=== PATIENT | male | born 1945 | race Caucasian/White ===

== ENCOUNTER 2017-02-17 15:26 | Inpatient (IN) | payer MEDICARE ==
[~2017-02-17] VITALS: Ht 182.9 cm; Wt 103.5 kg
--- NOTE | 2017-02-17 15:58 | ED.ADGEN ---
Past Medical History Past Medical History: Asthma, Cancer, COPD, CVA, Diabetes-Type II, Hypertension , Other Additional Past Medical Histor: THYROID CA Past Surgical History: Other Additional Past Surgical Histo: THYROIDECTOMY,TUMOR REMOVED FROM BACK,SHOULDER Additional Information: 3 PPD Alcohol Use: None Drug Use: None Adult General Chief Complaint Chief Complaint: SHORTNESS OF BREATH HPI HPI Patient is a 71 year old man, history of type 2 diabetes mellitus, hypertension , COPD, CVA, thyroid carcinoma, kidney disease, on Aggrenox and aspirin, who follows at the [place], who presents to the emergency department with a complaint of shortness of breath worsening over the past several days. Cough productive of clear sputum, no fevers, no chills, did receive this laxation this year. Generalized weakness, no focal weakness, headaches, numbness or tingling. No chest pain. No back pain. No GI or complaints. No vision changes. No injuries. He states that treatments at home have not been effective. Patient noted to be hypoxic, oxygen saturation of 88% on room air upon arrival, heart rate of 103, sinus tachycardia the monitor. Denies any recent travel or surgery , any history of DVT or PE. Review of Systems Review of Systems Constitutional: Denies fever or chills. [] Eyes: Denies change in visual acuity. [] HENT: Denies nasal congestion or sore throat. [] Respiratory: Cough productive of clear sputum, shortness of breath. Cardiovascular: Denies chest pain or edema. [] GI: Denies abdominal pain, nausea, vomiting, bloody stools or diarrhea. [] : Denies dysuria. [] Musculoskeletal: Denies back pain or joint pain. [] Integument: Denies rash. [] Neurologic: Denies headache, focal weakness or sensory changes. [] Endocrine: Denies polyuria or polydipsia. [] Lymphatic: Denies swollen glands. [] Psychiatric: Denies depression or anxiety. [] Current Medications Current Medications Current Medications Medications (Trade) Dose Ordered Sig/Tejas Start Time Stop Time Status Last Admin Dose Admin Albuterol/ Ipratropium (Duoneb) 3 ml STK-MED ONCE 02/17/17 16:09 02/17/17 16:10 DC Allergies Allergies Allergies Coded Allergies Type Severity Reaction Last Updated Verified No Known Drug Allergies 02/17/17 No Physical Exam Physical Exam Constitutional: Well developed, well nourished, no acute distress, non-toxic appearance. [] HENT: Normocephalic, atraumatic, bilateral external ears normal, oropharynx moist, no oral exudates, nose normal. [] Eyes: PERRLA, EOMI, conjunctiva normal, no discharge. [] Neck: Normal range of motion, no tenderness, supple, no stridor. [] Cardiovascular:Heart rate mildly tachycardic, regular, no murmur , S1, S2, rubs or gallops. [] Lungs & Thorax: Patient with coarse breath sounds bilaterally, poor aeration, no wheezing, rales noted to the lung kerr. Abdomen: Bowel sounds normal, no rebound, rigidity, no guarding, soft, no tenderness, no masses, no pulsatile masses. [] Skin: Warm, dry, no erythema, no rash. [] Back: No tenderness, no CVA tenderness. [] Extremities: No tenderness, no cyanosis, no clubbing, ROM intact, no edema. Negative Homans sign. [] Neurologic: Alert and oriented X 3, normal motor function, normal sensory function, no focal deficits noted. [] Psychologic: Affect normal, judgement normal, mood normal. [] Current Patient Data Vital Signs Vital Signs Date Time Temp Pulse Resp B/P Pulse Ox O2 Delivery O2 Flow Rate FiO2 02/17/17 17:00 92 22 173/70 95 Nasal Cannula 2 02/17/17 15:31 98.3 98.3 Lab Values Laboratory Tests Test 02/17/17 15:50 02/17/17 16:10 White Blood Count 10.4x10^3/uL (4.0-11.0) Red Blood Count 3.54x10^6/uL (4.30-5.70) L Hemoglobin 10.5g/dL (13.0-17.5) L Hematocrit 30.7% (39.0-53.0) L Mean Corpuscular Volume 87fL (79-100) Mean Corpuscular Hemoglobin 30pg (25-35) Mean Corpuscular Hemoglobin Concent 34g/dL (31-37) Red Cell Distribution Width 14.3% (11.5-14.5) Platelet Count 255x10^3/uL (140-400) Neutrophils (%) (Auto) 76% (31-73) H Lymphocytes (%) (Auto) 14% (24-48) L Monocytes (%) (Auto) 7% (0-9) Eosinophils (%) (Auto) 2% (0-3) Basophils (%) (Auto) 1% (0-3) Neutrophils # (Auto) 7.9x10^3uL (1.8-7.7) H Lymphocytes # (Auto) 1.5x10^3/uL (1.0-4.8) Monocytes # (Auto) 0.7x10^3/uL (0.0-1.1) Eosinophils # (Auto) 0.2x10^3/uL (0.0-0.7) Basophils # (Auto) 0.1x10^3/uL (0.0-0.2) Prothrombin Time 14.1SEC (11.7-14.0) H Prothrombin Time INR 1.2 (0.8-1.1) H Sodium Level 144mmol/L (136-145) Potassium Level 3.8mmol/L (3.5-5.1) Chloride Level 106mmol/L (98-107) Carbon Dioxide Level 24mmol/L (21-32) Anion Gap 14 (6-14) Blood Urea Nitrogen 45mg/dL (8-26) H Creatinine 4.1mg/dL (0.7-1.3) H Estimated GFR (Cockcroft-Gault) 14.5 BUN/Creatinine Ratio 11 (6-20) Glucose Level 155mg/dL (70-99) H Calcium Level 8.8mg/dL (8.5-10.1) Total Bilirubin 0.2mg/dL (0.2-1.0) Aspartate Amino Transferase (AST) 10U/L (15-37) L Alanine Aminotransferase (ALT) 17U/L (16-63) Alkaline Phosphatase 84U/L (46-116) Troponin I Quantitative < 0.017ng/mL (0.000-0.055) ET-Awd-F-Type Natriuretic Peptide 875pg/mL (0-124) H Total Protein 7.1g/dL (6.4-8.2) Albumin 3.3g/dL (3.4-5.0) L Albumin/Globulin Ratio 0.9 (1.0-1.7) L Influenza Type A Antigen Negative (NEGATIVE) Influenza Type B Antigen Negative (NEGATIVE) Laboratory Tests 02/17/17 15:50 Laboratory Tests 02/17/17 15:50 EKG EKG EC: Sinus rhythm, heart rate 90 bpm, upright axis, QTC of 467, OR of 160 , QRS of 106, no ST elevations or depressions, contour normality is noted in the anterior septal leads, abnormal ECG, does not meet STEMI criteria. As interpreted by me. Radiology/Procedures Radiology/Procedures [][facility] [address] [place] [address] IMAGING REPORT Signed PATIENT: FARHAN SAM ACCOUNT: [id number] : 1945 LOCATION: ER AGE: 71 SEX: M EXAM STATUS: REG ER ORD. PHYSICIAN: HIGINIO ROWLAND DO REASON: Renal failure PROCEDURE: RENAL COMPLETE BILATERAL PROCEDURE Renal ultrasound. HISTORY Renal failure. Uncontrolled hypertension. TECHNIQUE Renal ultrasound was performed. COMPARISON None. FINDINGS Right kidney measures at least 7.0 centimeters in length and the left 10.9 centimeters. Cortical echogenicity is increased bilaterally. There is no hydronephrosis or renal mass. Bladder is distended to a volume of 491 cubic centimeters. IMPRESSION Increased renal cortical echogenicity can be a finding of medical renal disease. Electronically signed by: Vinh Gleason MD (Feb 17, 2017 18:06:28) DICTATED and SIGNED BY: VINH GLEASON MD DATE: 02/17/171805 CC: HIGINIO ROWLAND DO; NON,STAFF ~ Impressions: [facility] [address] [place] [address] IMAGING REPORT Signed PATIENT: FARHAN SAM ACCOUNT: [id number] : 1945 LOCATION: ER AGE: 71 SEX: M EXAM STATUS: PRE ER ORD. PHYSICIAN: HIGINIO ROWLAND DO REASON: SOA/Hypoxia PROCEDURE: PORTABLE CHEST 1V Portable chest, 02/17/2017: History: Shortness of breath, hypoxia No previous studies are available at this time for comparison purposes. The heart is within normal limits in size. The pulmonary vascularity is at the upper limits of normal. The depth of inspiration is suboptimal with streaky atelectasis in both lung bases. A component pneumonia cannot be excluded. There is blunting of the left lateral costophrenic angle compatible with a small amount of pleural fluid. IMPRESSION: 1. Borderline vascular congestion. 2. Mild bibasilar atelectasis. 3. Small left pleural effusion DICTATED and SIGNED BY: MAURICIO GONZALEZ MD DATE: 02/17/17 7087 CC: HIGINIO ROWLAND DO ~ Course & Med Decision Making Course & Med Decision Making Pertinent Labs and Imaging studies reviewed. (See chart for details) Patient with hypoxia, examination concerning for pulmonary edema, confirmed on chest x-rays reveals evidence of pulmonary edema and a small left-sided pleural effusion. Patient's history, examination, and laboratory studies support fluid, no evidence of infection. Patient with a creatinine of 4.1, blood urea nitrogen of 45. He states that he does have a history of kidney disease, although he cannot provide additional information. No ECG or lateral abnormalities. I did discuss findings as above with Dr. Romo of nephrology, at this point the patient is stable on several liters nasal cannula oxygen, blood pressures are 150s over 70s, heart rate is in the 80s. He requests the patient be initiated on Lasix, and a Laird catheter placed for monitoring and ruling out obstruction , an ultrasound of the kidneys be obtained. [facility]. I discussed this with patient, who is in agreement with plan for admission, although he initially was hesitant, patient's is currently on hospice his knees upset about being admitted to the hospital although he understands at this point he is not safe for discharge home. He did decline a Laird catheter placement. Patient was voiding in the ED without issue , denied any issues with passing urine. Specimen was sent. Findings as above were discussed with Dr. Vazquez internal medicine, patient accepted to her service as a full admission to the medical telemetry floor with consultation and evaluation as stated. Bridge orders entered per discussion. Dragon Disclaimer Dragon Disclaimer This electronic medical record was generated, in whole or in part, using a voice recognition dictation system. Departure Impression: Primary Impression: Pulmonary edema Additional Impressions: Renal failure Hypoxia Disposition: 09 ADMITTED INPATIENT Admitting Physician: Tiffani Vazquez Condition: IMPROVED Problem Qualifiers HIGINIO ROWLAND DO Feb 17, 2017 15:58
[2017-02-17 16:03] LABS: BASO # 0.1 x10^3/uL (0.0-0.2); BASO % 1 % (0-3); EOS % 2 % (0-3); HEMATOCRIT 30.7 % (39.0-53.0); HEMOGLOBIN 10.5 g/dL (13.0-17.5); LYMPH # 1.5 x10^3/uL (1.0-4.8); LYMPH % 14 % (24-48); MEAN CORPUSCULAR HEMOGLOBIN 30 pg (25-35); MEAN CORPUSCULAR HGB CONC 34 g/dL (31-37); MEAN CORPUSCULAR VOLUME 87 fL (79-100); MONO % 7 % (0-9); NEUT % 76 % (31-73); PLATELET COUNT 255 x10^3/uL (140-400); RED BLOOD COUNT 3.54 x10^6/uL (4.30-5.70); RED CELL DISTRIBUTION WIDTH 14.3 % (11.5-14.5); WHITE BLOOD COUNT 10.4 x10^3/uL (4.0-11.0)
[2017-02-17] MEDS ORDERED: IPRATRPIUM/ALBUTEROL 0.5/2.5MG 3 ML NEBU. ONE (16:09)
--- NOTE | 2017-02-17 16:16 | RAD ---
Portable chest, 02/17/2017: History: Shortness of breath, hypoxia No previous studies are available at this time for comparison purposes. The heart is within normal limits in size. The pulmonary vascularity is at the upper limits of normal. The depth of inspiration is suboptimal with streaky atelectasis in both lung bases. A component pneumonia cannot be excluded. There is blunting of the left lateral costophrenic angle compatible with a small amount of pleural fluid. IMPRESSION: 1. Borderline vascular congestion. 2. Mild bibasilar atelectasis. 3. Small left pleural effusion
[2017-02-17 16:17] LABS: CALCIUM 8.8 mg/dL (8.5-10.1); CREATININE 4.1 mg/dL (0.7-1.3); GFR 14.5; POTASSIUM 3.8 mmol/L (3.5-5.1)
[2017-02-17 16:22] LABS: ALBUMIN 3.3 g/dL (3.4-5.0); ALBUMIN/GLOBULIN RATIO 0.9 (1.0-1.7); TOTAL BILIRUBIN 0.2 mg/dL (0.2-1.0); TOTAL PROTEIN 7.1 g/dL (6.4-8.2)
[2017-02-17 16:38] LABS: OBC FLU VALID
[2017-02-17] MEDS ORDERED: FUROSEMIDE 40 MG/4 ML VIAL IVP ONE (17:30)
--- NOTE | 2017-02-17 18:08 | RAD ---
PROCEDURE Renal ultrasound. HISTORY Renal failure. Uncontrolled hypertension. TECHNIQUE Renal ultrasound was performed. COMPARISON None. FINDINGS Right kidney measures at least 7.0 centimeters in length and the left 10.9 centimeters. Cortical echogenicity is increased bilaterally. There is no hydronephrosis or renal mass. Bladder is distended to a volume of 491 cubic centimeters. IMPRESSION Increased renal cortical echogenicity can be a finding of medical renal disease. Electronically signed by: Vinh Gleason MD (Feb 17, 2017 18:06:28)
[2017-02-17] MEDS ORDERED: PROCHLORPERAZINE 10 MG/2 ML VIAL. IV PRN (19:00)
[2017-02-17] MEDS ORDERED: CALCIUM CARBONATE 500 MG TAB.CHEW PO PRN (19:00)
[2017-02-17] MEDS ORDERED: MAG HYDROX/ALUMINUM HYD/SIMETH 30 ML ORAL.SUSP PO PRN (19:00)
[2017-02-17] MEDS ORDERED: MORPHINE SULFATE 2 MG/ML DISP.SYRIN. IV PRN (19:00)
[2017-02-17] MEDS ORDERED: ONDANSETRON PF 4 MG/2 ML VIAL. IV PRN (19:00)
[2017-02-17] MEDS ORDERED: LACTULOSE 20 GM/30 ML SOLUTION. PO PRN (19:00)
[2017-02-17] MEDS ORDERED: OXYCODONE IR 5 MG TABLET. PO PRN (19:00)
[2017-02-17] MEDS ORDERED: ACETAMINOPHEN 325 MG TABLET. PO PRN (19:00)
[2017-02-17] MEDS ORDERED: DEXTROSE 50% 25 GM / 50ML DISP.SYRIN. IV PRN ×2 (19:00→19:15)
[2017-02-17] MEDS ORDERED: BISACODYL 10 MG SUPP.RECT. PR PRN (19:00)
[2017-02-17] MEDS ORDERED: MAGNESIUM HYDROXIDE 2,400 MG/30 ML ORAL.SUSP. PO PRN (19:00)
[2017-02-17] MEDS ORDERED: PROCHLORPERAZINE 25 MG SUPP.RECT. PR PRN (19:00)
--- NOTE | 2017-02-17 19:04 | PDOC1 ---
History and Physical Date of Admission Date of Admission DATE: 02/17/17 TIME: 18:55 Identification/Chief Complaint Chief Complaint soa Source Source: Caregiver, Chart review, Patient History of Present Illness History of Present Illness 71 y.o male, not the best historian, decide to come to er bec of worsening SOA, no leg edema. Was told at one point might need HD,. Denies CP, abd pain, n/emesis or any other sxs is at hospice, pt initially wanted to leave, BUt hypoxic at ER 88% at its best, BNP elevated, CXR shows congestion, Got lasix at ER, UO good, Advised flannery by renal and renal US Crea 4.9, unknown baseline,. Claims he still makes good urine PAst medical: HTN, COPD, DM, CKD Past Surgical History Past Surgical History: Other (unknown - pt limited todya (pre occupied with on hpsice?)) Family History Family History: Family History Unknown Social History Smoke: No ALCOHOL: none Drugs: None Current Problem List Problem List Problems Medical Problems: (1) CKD (chronic kidney disease) Status: Acute (2) Hypoxia Status: Acute (3) Pulmonary edema Status: Acute (4) Renal failure Status: Acute Problems: Current Medications Current Medications Current Medications Albuterol/ Ipratropium (Duoneb) 3 ml STK-MED ONCE .ROUTE ; Start 02/17/17 at 16: 09; Stop 02/17/17 at 16:10; Status DC Furosemide (Lasix) 80 mg 1X ONCE IVP Last administered on 02/17/17t 17:51; Start 02/17/17 at 17:30; Stop 02/17/17 at 17:31; Status DC Allergies Allergies: Coded Allergies: No Known Drug Allergies (Unverified , 02/17/17) ROS General: YES: Malaise Eyes: No Blurry vision, No Decreased vision, No Double vision, No Dry eyes, No Excessive tearing, No Eye Pain, No Itchy Eyes, No Loss of vision, No Other, No Photophobia, No Scotomata, No Uses contacts, No Uses glasses HEENT: No: Epistaxis, Heacaches, Hearing change, Nasal congestion, Nasal discharge, Oral lesions, Other, Sinus pain, Sneezing, Snoring, Sore Throat, Tinnitus, Vertigo, Visual Changes, Vocal changes ALLERGY AND IMMUNOLOGY: No: Hives, Insect Bite Sensitivity, Itchy/Watery Eyes, Nasal Congestion, Other, Post Nasal Drip, Seasonal Allergies ENDOCRINE: No: Breast Changes, Galactorrhea, Hair Pattern Changes, Hot Flashes , Malaise/lethargy, Mood Swings, Other, Palpitations, Polydipsia/polyuria, Skin Changes, Temperature Intolerance, Unexpected Weight Changes Breast: No New/Changing Breast Lumps, No Nipple changes, No Nipple discharge, No Other Respiratory: YES: Shortness of breath, No: Cough, Hemoptysis, Orthopnea, Other, Pleuritic Pain, SOB with excertion, Sputum Changes, Stridor, Tachypnea, Wheezing Cardiovascular: No Chest Pain, No Edema, No Lt Headedness, No Orthopnea, No Other, No Palpitations, No Paroxysmal Noc. Dyspnea Genitourinary: No , No , No , No , No , No , No , No Discharge, No Dysuria, No Flank Pain, No Frequency, No Hematuria, No Incontinence, No Other, No Pain, No Retention, No Urgency Musculoskeletal: No Gait Disturbance, No Joint Pain, No Joint Stiffness, No Joint Swelling, No Muscle Pain, No Muscular Weakness, No Other, No Pain In:, No Swelling In: Neurological: No Behavorial Changes, No Bowel/Bladder ControlChng, No Confusion , No Dizziness, No Gait Disturbance, No Headaches, No Impaired Coord/balance, No Memory Loss, No Numbness/Tingling, No Other, No Seizures, No Speech Problems , No Tremors, No Visual Changes, No Weakness Skin: No Acne, No Dry Skin, No Eczema, No Hair Changes, No Lumps, No Mole Changes, No Mottling, No Nail Changes, No Other, No Pruritus, No Rash, No Skin Lesion Changes Physical Exam General: Alert, Oriented X3, Cooperative, No acute distress HEENT: Atraumatic, PERRLA Lungs: Normal air movement, Other (crackles, no wheezing) Heart: S1S2, RRR Cardiovascular: S1, S2 Breasts: Normal, Rt breast nml w/o mass, Lt breast nml w/o mass, Nipples normal Male Genitals Exam: normal genitalia, normal prostate Rectal Exam: not examined, mass PELVIC: Nml ext genitalia Extremities: No clubbing, No cyanosis, No edema, Normal pulses, No tenderness/ swelling Skin: No rashes, No breakdown, No significant lesion Neuro: Normal gait, Normal speech, Strength at 5/5 X4 ext, Normal tone, Sensation intact, Cranial nerves 3-12 NL, Reflexes 2+ Psych/Mental Status: Mental status NL Vitals Vitals Vital Signs Date Time Temp Pulse Resp B/P Pulse Ox O2 Delivery O2 Flow Rate FiO2 02/17/17 18:00 108 22 173/94 96 Nasal Cannula 2 02/17/17 15:31 98.3 98.3 Labs Labs Laboratory Tests Test 02/17/17 15:50 02/17/17 16:10 White Blood Count 10.4x10^3/uL (4.0-11.0) Red Blood Count 3.54x10^6/uL (4.30-5.70) Hemoglobin 10.5g/dL (13.0-17.5) Hematocrit 30.7% (39.0-53.0) Mean Corpuscular Volume 87fL (79-100) Mean Corpuscular Hemoglobin 30pg (25-35) Mean Corpuscular Hemoglobin Concent 34g/dL (31-37) Red Cell Distribution Width 14.3% (11.5-14.5) Platelet Count 255x10^3/uL (140-400) Neutrophils (%) (Auto) 76% (31-73) Lymphocytes (%) (Auto) 14% (24-48) Monocytes (%) (Auto) 7% (0-9) Eosinophils (%) (Auto) 2% (0-3) Basophils (%) (Auto) 1% (0-3) Neutrophils # (Auto) 7.9x10^3uL (1.8-7.7) Lymphocytes # (Auto) 1.5x10^3/uL (1.0-4.8) Monocytes # (Auto) 0.7x10^3/uL (0.0-1.1) Eosinophils # (Auto) 0.2x10^3/uL (0.0-0.7) Basophils # (Auto) 0.1x10^3/uL (0.0-0.2) Sodium Level 144mmol/L (136-145) Potassium Level 3.8mmol/L (3.5-5.1) Chloride Level 106mmol/L (98-107) Carbon Dioxide Level 24mmol/L (21-32) Anion Gap 14 (6-14) Blood Urea Nitrogen 45mg/dL (8-26) Creatinine 4.1mg/dL (0.7-1.3) Estimated GFR (Cockcroft-Gault) 14.5 BUN/Creatinine Ratio 11 (6-20) Glucose Level 155mg/dL (70-99) Calcium Level 8.8mg/dL (8.5-10.1) Total Bilirubin 0.2mg/dL (0.2-1.0) Aspartate Amino Transf (AST/SGOT) 10U/L (15-37) Alanine Aminotransferase (ALT/SGPT) 17U/L (16-63) Alkaline Phosphatase 84U/L (46-116) Troponin I Quantitative < 0.017ng/mL (0.000-0.055) HR-Vir-Q-Type Natriuretic Peptide 875pg/mL (0-124) Total Protein 7.1g/dL (6.4-8.2) Albumin 3.3g/dL (3.4-5.0) Albumin/Globulin Ratio 0.9 (1.0-1.7) Influenza Type A Antigen Negative (NEGATIVE) Influenza Type B Antigen Negative (NEGATIVE) Laboratory Tests Test 02/17/17 15:50 02/17/17 16:10 White Blood Count 10.4x10^3/uL (4.0-11.0) Red Blood Count 3.54x10^6/uL (4.30-5.70) Hemoglobin 10.5g/dL (13.0-17.5) Hematocrit 30.7% (39.0-53.0) Mean Corpuscular Volume 87fL (79-100) Mean Corpuscular Hemoglobin 30pg (25-35) Mean Corpuscular Hemoglobin Concent 34g/dL (31-37) Red Cell Distribution Width 14.3% (11.5-14.5) Platelet Count 255x10^3/uL (140-400) Neutrophils (%) (Auto) 76% (31-73) Lymphocytes (%) (Auto) 14% (24-48) Monocytes (%) (Auto) 7% (0-9) Eosinophils (%) (Auto) 2% (0-3) Basophils (%) (Auto) 1% (0-3) Neutrophils # (Auto) 7.9x10^3uL (1.8-7.7) Lymphocytes # (Auto) 1.5x10^3/uL (1.0-4.8) Monocytes # (Auto) 0.7x10^3/uL (0.0-1.1) Eosinophils # (Auto) 0.2x10^3/uL (0.0-0.7) Basophils # (Auto) 0.1x10^3/uL (0.0-0.2) Sodium Level 144mmol/L (136-145) Potassium Level 3.8mmol/L (3.5-5.1) Chloride Level 106mmol/L (98-107) Carbon Dioxide Level 24mmol/L (21-32) Anion Gap 14 (6-14) Blood Urea Nitrogen 45mg/dL (8-26) Creatinine 4.1mg/dL (0.7-1.3) Estimated GFR (Cockcroft-Gault) 14.5 BUN/Creatinine Ratio 11 (6-20) Glucose Level 155mg/dL (70-99) Calcium Level 8.8mg/dL (8.5-10.1) Total Bilirubin 0.2mg/dL (0.2-1.0) Aspartate Amino Transf (AST/SGOT) 10U/L (15-37) Alanine Aminotransferase (ALT/SGPT) 17U/L (16-63) Alkaline Phosphatase 84U/L (46-116) Troponin I Quantitative < 0.017ng/mL (0.000-0.055) EO-Ayf-B-Type Natriuretic Peptide 875pg/mL (0-124) Total Protein 7.1g/dL (6.4-8.2) Albumin 3.3g/dL (3.4-5.0) Albumin/Globulin Ratio 0.9 (1.0-1.7) Influenza Type A Antigen Negative (NEGATIVE) Influenza Type B Antigen Negative (NEGATIVE) VTE Prophylaxis Ordered VTE Prophylaxis Devices: Yes VTE Pharmacological Prophylaxi: Yes Assessment/Plan Assessment/Plan 1. Pulm edema/vol overload on CXR with blunting of costophrenic angles 2. SHALOM on CKD, unknown stage 3. Overweight with mild pCM 4. AOCD 5. COPD, DM, HTN, - chronic stable PLan: Insert flannery Accurate I and O Renal US renal panel daily COnsult renal check echo Consult cards for pulm edema - [facility] SSI Heparin sq q12 Supportive meds Dw pt and ER MD - if no resolve of acute issues, HD might be in the horizon Interval CXR on monday JUSTINO KOENIG MD Feb 17, 2017 19:04
[2017-02-17 19:43] LABS: INR 1.2 (0.8-1.1); PROTHROMBIN TIME PATIENT 14.1 SEC (11.7-14.0)
[2017-02-17 19:59] VITALS: BP 132/72
[2017-02-17 20:00] VITALS: BP 177/85
[2017-02-17] MEDS: SENNOSIDES/DOCUSATE 8.6/50MG TABLET. PO SCH (20:31)
[2017-02-17] MEDS: HEPARIN PF for SUB-Q USE 5,000 UNIT/0.5 ML VIAL. SQ SCH (20:31)
[2017-02-17] MEDS: DOCUSATE SODIUM 100 MG CAPSULE PO SCH (20:31)
[2017-02-17] MEDS ORDERED: AMITRIPTYLINE HCL 50 MG TABLET PO PRN (21:30)
[2017-02-17] MEDS: IPRATRPIUM/ALBUTEROL 0.5/2.5MG 3 ML NEBU. NEB SCH (21:57)
[2017-02-17] MEDS: INSULIN ASPART 300 UNITS/3 ML INSULN.PEN SQ SCH (22:27)
[2017-02-17 23:18] VITALS: BP 182/96
--- NOTE | 2017-02-18 01:15 | EKG ---
[facility] [address] [place] [address] Test Date: 2017-02-17 Test Time: 19:21:46 Pat Name: FARHAN SAM Department: Room: 510 Gender: M P[employer]: : 1945 Requested By: HIGINIO ROWLAND Order Number: [id number] Reading MD: Mathew Avila Measurements Intervals [place] Rate: 90 P: 33 [place]: 160 QRS: 34 QRSD: 106 T: 59 QT: 378 QTc: 467 Interpretive Statements SINUS RHYTHM LOW LIMB LEAD VOLTAGE QRS(T) CONTOUR ABNORMALITY CONSIDER ANTEROSEPTAL MYOCARDIAL DAMAGE POSSIBLY ABNORMAL ECG Electronically Signed On 02-27-2017 16:34:59 CDT by Mathew Avila
[2017-02-18 03:00] VITALS: BP 136/63
[2017-02-18 05:26] LABS: CREATININE 4.1 mg/dL (0.7-1.3); GFR 14.5; POTASSIUM 4.1 mmol/L (3.5-5.1)
[2017-02-18] MEDS: ALPRAZOLAM 1 MG TABLET PO PRN ×3 (05:46→17:47)
[2017-02-18 07:00] VITALS: BP 137/77
[2017-02-18] MEDS: IPRATRPIUM/ALBUTEROL 0.5/2.5MG 3 ML NEBU. NEB SCH ×4 (07:25→19:26)
[2017-02-18] MEDS ORDERED: INSULIN ASPART 300 UNITS/3 ML INSULN.PEN SQ SCH (08:00)
[2017-02-18] MEDS: INSULIN ASPART 300 UNITS/3 ML INSULN.PEN SQ SCH ×4 (08:00→17:00)
[2017-02-18] MEDS: SENNOSIDES/DOCUSATE 8.6/50MG TABLET. PO SCH ×2 (08:45→20:54)
[2017-02-18] MEDS: HEPARIN PF for SUB-Q USE 5,000 UNIT/0.5 ML VIAL. SQ SCH ×2 (08:45→20:44)
[2017-02-18] MEDS: DOCUSATE SODIUM 100 MG CAPSULE PO SCH ×2 (08:45→20:54)
[2017-02-18 11:00] VITALS: BP 173/83
--- NOTE | 2017-02-18 12:29 | ACF ---
Admission Forms Criteria PULMONARY EDEMA Clinical Indications for Admission to Inpatient Care (Place 'X' for any and all applicable criteria): Admission is indicated by ANY ONE of the following(1)(2)(3)(4): [ ]I. Severe electrolyte abnormalities requiring inpatient care(9) [ ]II. Hemodynamic instability [ ]III. Anasarca [ ]IV. Acute cardiac ischemia causing or associated with failure (Also use Angina or Myocardial Infarction as appropriate) [ ]V. Cardiac arrhythmias of immediate concern [ ]. Precipitating cause for acute decompensation (eg, pneumonia, pulmonary embolism) requires inpatient care [ ]VII. Pulmonary edema that is very severe (eg, mechanical ventilation needed, imminent or likely, need for 100% oxygen to keep oxygen saturation above 90%) [X]VIII. Inpatient admission required rather than observation care (Also use Heart Failure: Observation Care as appropriate) because of ANY ONE of the following: [ ]a) Pulmonary edema that is severe or worsening as indicated by ALL of the following: [ ]i) New need for oxygen therapy to keep oxygen saturation above 90% (or increased FiO2 need from baseline) [ ]ii) Has not improved sufficiently with emergency department or observation care IV diuretics or other heart failure treatments[C] [ ]b) Cognitive impairment that is severe or persistent [ ]c) Increased creatinine (new on laboratory test) with reduction of more than 50% in estimated glomerular filtration rate from baseline. [ ]d) Acute renal insufficiency (progressively (ongoing) rising creatinine (known from past laboratory test) with reduction of more than 25% in estimated glomerular filtration rate from baseline) [ ]e) Acute peripheral ischemia (eg, pulseless, cool, mottled, or cyanotic extremity) [X]f) Acute renal failure [X]g) Supplemental O2 or respiratory treatment for >24 hr that are performable only in acute inpatient setting [ ]h) Pulmonary artery catheter monitoring [ ]i) Other condition, treatment or monitoring requiring inpatient admission Extended stay beyond goal length of stay may be needed for(1)(3)(21)(25): [ ]a) Cardiac ischemia, confirmed or suspected as precipitant [ ]b) Cardiogenic shock or refractory pulmonary edema [ ]c) Acute kidney injury or renal failure [ ]d) Respiratory failure (eg, need for noninvasive or invasive mechanical ventilation) (23) [ ]e) Concomitant pneumonia or significant electrolyte abnormality (eg, severe hyponatremia) [ ]f) Newly diagnosed (new onset) atrial fibrillation [ ]g) Stage IV chronic kidney disease (estimated glomerular filtration rate of less than 30 mL/min/1.73m2 (0.50 mL/sec/1.73m2), and not previously on chronic dialysis (Contents from HEART FAILURE clinical indications for admission to inpatient care have been integrated in this form) The original [facility] [employer] content created by [facility] [employer] has been revised. The portions of the content which have been revised are identified through the use of italic text or in bold, and [facility] has neither reviewed nor approved the modified material. All other unmodified content is copyright [facility] [employer] Please see references footnoted in the original [facility] [employer] edition 2016 Admission Criteria Met?: Yes REG CUBA Feb 18, 2017 12:29
[2017-02-18 13:02] LABS: PHOSPHORUS 4.3 mg/dL (2.6-4.7)
--- NOTE | 2017-02-18 14:10 | PDOC2 ---
CONSULT Date of Consult Date of Consult DATE: 02/18/17 TIME: 14:01 Reason for Consult Reason for Consult: Dyspnea Referring Physician Referring Physician: Dr Vazquez Identification/Chief Complaint Chief Complaint Dyspnea History of Present Illness Reason for Visit: This patient is a 71-year-old gentleman that is not the best of historians. He has a known history of COPD, diabetes, hypertension and usually is seen at the [facility]. His is in a difficult situation and she is with hospice care. He does not appear to have been taking very good care of himself. The patient had progressive shortness of breath for about 24 hours and this brought him to the emergency room where he was seen and evaluated and he was decided to admit him. At the time that I saw him the patient states that he had been severely short of breath and is O2-dependent but that since admission he is feeling a little better. Patient denies having any palpitations, denies any swelling, denies any loss of consciousness. No chest pains. The patient has had a history of chronic kidney problems with chronic renal failure but he denies any history of previous dialysis. When he came in the creatinine was 4.1. Past Medical History Cardiovascular: HTN Pulmonary: COPD Renal/: Chronic renal failure Endocrine: Diabetes Past Surgical History Past Surgical History: Other (unknown - pt limited todya (pre occupied with on hpsice?)) Family History Family History: Family History Unknown Social History No ALCOHOL: none Drugs: None Current Problem List Problem List Problems Medical Problems: (1) CKD (chronic kidney disease) Status: Acute (2) Hypoxia Status: Acute (3) Pulmonary edema Status: Acute (4) Renal failure Status: Acute Current Medications Current Medications Current Medications Albuterol/ Ipratropium (Duoneb) 3 ml STK-MED ONCE .ROUTE ; Start 02/17/17 at 16: 09; Stop 02/17/17 at 16:10; Status DC Furosemide (Lasix) 80 mg 1X ONCE IVP Last administered on 02/17/17t 17:51; Start 02/17/17 at 17:30; Stop 02/17/17 at 17:31; Status DC Ondansetron HCl (Zofran) 4 mg PRN Q6HRS PRN IV NAUSEA/VOMITING; Start 02/17/17 at 19:00 Prochlorperazine Edisylate (Compazine) 10 mg PRN Q6HRS PRN IV NAUSEA/VOMITING; Start 02/17/17 at 19:00 Prochlorperazine (Compazine) 25 mg PRN Q12HR PRN IN NAUSEA/VOMITING; Start at 19:00 Al Hydroxide/Mg Hydroxide (Mylanta Plus Xs) 30 ml PRN Q3HRS PRN PO HEARTBURN / GAS; Start 02/17/17 at 19:00 Calcium Carbonate/ Glycine (Tums) 500 mg PRN Q3HRS PRN PO UPSET STOMACH; Start 02/17/17 at 19:00 Zolpidem Tartrate (Ambien) 5 mg PRN QHS PRN PO INSOMNIA, MAY REPEAT IN 1HR; Start 02/17/17 at 19:00 Oxycodone HCl (Roxicodone) 5 mg PRN Q3HRS PRN PO BREAKTHROUGH PAIN; Start 02/17 at 19:00 Morphine Sulfate 1 mg PRN Q1HR PRN IV PAIN; Start 02/17/17 at 19:00 Acetaminophen (Tylenol) 650 mg PRN Q6HRS PRN PO MILD PAIN / TEMP; Start at 19:00 Senna/Docusate Sodium (Senna Plus) 1 tab BID PO ; Start 02/17/17 at 21:00 Docusate Sodium (Colace) 100 mg BID PO ; Start 02/17/17 at 21:00 Magnesium Hydroxide (Milk Of Magnesia) 2,400 mg PRN Q12HR PRN PO CONSTIPATION; Start 02/17/17 at 19:00 Lactulose 20 gm PRN Q12HR PRN PO CONSTIPATION; Start 02/17/17 at 19:00 Bisacodyl (Dulcolax Supp) 10 mg PRN DAILY PRN IN CONSTIPATION; Start 02/17/17 at 19:00 Heparin Sodium (Porcine) 5,000 unit Q12HR SQ ; Start 02/17/17 at 21:00 Insulin Aspart (Novolog) 0-9 UNITS TIDWMEALS SQ Last administered on 02/17/17t 22:27; Start 02/17/17 at 19:30 Dextrose 12.5 gm PRN Q15MIN PRN IV SEE COMMENTS; Start 02/17/17 at 19:00 Insulin Aspart (Novolog) 0-5 UNITS TIDWMEALS SQ ; Start 02/18/17 at 08:00; Status UNV Dextrose 12.5 gm PRN Q15MIN PRN IV SEE COMMENTS; Start 02/17/17 at 19:15; Status UNV Alprazolam (Xanax) 1 mg PRN Q6HRS PRN PO ANXIETY / AGITATION Last administered on 02/18/17 11:46; Start 02/17/17 at 21:30 Amitriptyline HCl (Elavil) 50 mg PRN QHS PRN PO INSOMNIA Last administered on 22:22; Start 02/17/17 at 21:30 Albuterol/ Ipratropium (Duoneb) 3 ml RTQID NEB Last administered on 02/18/17 11:28; Start 02/17/17 at 21:30 Allergies Allergies: Coded Allergies: No Known Drug Allergies (Unverified , 02/17/17) Physical Exam Physical Exam Patient appears to be in mild distress with shortness of breath at the time of the examination H EENT poor dentition. Neck 1 cm JVD. Lungs breath sounds are decreased some crackles mild wheezing. Heart regular rate and rhythm S1-S2 no S3 no S4. Abdomen is soft bowel sounds are present. Extremities no edema. Vitals VITALS Vital Signs Date Time Temp Pulse Resp B/P Pulse Ox O2 Delivery O2 Flow Rate FiO2 02/18/17 11:29 Room Air 02/18/17 11:00 98.6 99 20 173/83 92 2.0 98.6 Labs Labs Laboratory Tests Test 02/17/17 15:50 02/17/17 16:10 02/17/17 21:59 02/18/17 03:56 White Blood Count 10.4x10^3/uL (4.0-11.0) Red Blood Count 3.54x10^6/uL (4.30-5.70) Hemoglobin 10.5g/dL (13.0-17.5) Hematocrit 30.7% (39.0-53.0) Mean Corpuscular Volume 87fL (79-100) Mean Corpuscular Hemoglobin 30pg (25-35) Mean Corpuscular Hemoglobin Concent 34g/dL (31-37) Red Cell Distribution Width 14.3% (11.5-14.5) Platelet Count 255x10^3/uL (140-400) Neutrophils (%) (Auto) 76% (31-73) Lymphocytes (%) (Auto) 14% (24-48) Monocytes (%) (Auto) 7% (0-9) Eosinophils (%) (Auto) 2% (0-3) Basophils (%) (Auto) 1% (0-3) Neutrophils # (Auto) 7.9x10^3uL (1.8-7.7) Lymphocytes # (Auto) 1.5x10^3/uL (1.0-4.8) Monocytes # (Auto) 0.7x10^3/uL (0.0-1.1) Eosinophils # (Auto) 0.2x10^3/uL (0.0-0.7) Basophils # (Auto) 0.1x10^3/uL (0.0-0.2) Prothrombin Time 14.1SEC (11.7-14.0) Prothromb Time International Ratio 1.2 (0.8-1.1) Sodium Level 144mmol/L (136-145) 140mmol/L (136-145) Potassium Level 3.8mmol/L (3.5-5.1) 4.1mmol/L (3.5-5.1) Chloride Level 106mmol/L (98-107) 105mmol/L (98-107) Carbon Dioxide Level 24mmol/L (21-32) 22mmol/L (21-32) Anion Gap 14 (6-14) 13 (6-14) Blood Urea Nitrogen 45mg/dL (8-26) 46mg/dL (8-26) Creatinine 4.1mg/dL (0.7-1.3) 4.1mg/dL (0.7-1.3) Estimated GFR (Cockcroft-Gault) 14.5 14.5 BUN/Creatinine Ratio 11 (6-20) Glucose Level 155mg/dL (70-99) 144mg/dL (70-99) Calcium Level 8.8mg/dL (8.5-10.1) 9.0mg/dL (8.5-10.1) Total Bilirubin 0.2mg/dL (0.2-1.0) Aspartate Amino Transf (AST/SGOT) 10U/L (15-37) Alanine Aminotransferase (ALT/SGPT) 17U/L (16-63) Alkaline Phosphatase 84U/L (46-116) Troponin I Quantitative < 0.017ng/mL (0.000-0.055) UJ-Llv-W-Type Natriuretic Peptide 875pg/mL (0-124) Total Protein 7.1g/dL (6.4-8.2) Albumin 3.3g/dL (3.4-5.0) Albumin/Globulin Ratio 0.9 (1.0-1.7) Influenza Type A Antigen Negative (NEGATIVE) Influenza Type B Antigen Negative (NEGATIVE) Glucose (Fingerstick) 203mg/dL (70-99) Phosphorus Level 4.3mg/dL (2.6-4.7) Magnesium Level 2.0mg/dL (1.8-2.4) Test 02/18/17 08:05 02/18/17 11:45 Glucose (Fingerstick) 149mg/dL (70-99) 168mg/dL (70-99) Laboratory Tests Test 02/17/17 15:50 02/17/17 16:10 02/17/17 21:59 02/18/17 03:56 White Blood Count 10.4x10^3/uL (4.0-11.0) Red Blood Count 3.54x10^6/uL (4.30-5.70) Hemoglobin 10.5g/dL (13.0-17.5) Hematocrit 30.7% (39.0-53.0) Mean Corpuscular Volume 87fL (79-100) Mean Corpuscular Hemoglobin 30pg (25-35) Mean Corpuscular Hemoglobin Concent 34g/dL (31-37) Red Cell Distribution Width 14.3% (11.5-14.5) Platelet Count 255x10^3/uL (140-400) Neutrophils (%) (Auto) 76% (31-73) Lymphocytes (%) (Auto) 14% (24-48) Monocytes (%) (Auto) 7% (0-9) Eosinophils (%) (Auto) 2% (0-3) Basophils (%) (Auto) 1% (0-3) Neutrophils # (Auto) 7.9x10^3uL (1.8-7.7) Lymphocytes # (Auto) 1.5x10^3/uL (1.0-4.8) Monocytes # (Auto) 0.7x10^3/uL (0.0-1.1) Eosinophils # (Auto) 0.2x10^3/uL (0.0-0.7) Basophils # (Auto) 0.1x10^3/uL (0.0-0.2) Prothrombin Time 14.1SEC (11.7-14.0) Prothromb Time International Ratio 1.2 (0.8-1.1) Sodium Level 144mmol/L (136-145) 140mmol/L (136-145) Potassium Level 3.8mmol/L (3.5-5.1) 4.1mmol/L (3.5-5.1) Chloride Level 106mmol/L (98-107) 105mmol/L (98-107) Carbon Dioxide Level 24mmol/L (21-32) 22mmol/L (21-32) Anion Gap 14 (6-14) 13 (6-14) Blood Urea Nitrogen 45mg/dL (8-26) 46mg/dL (8-26) Creatinine 4.1mg/dL (0.7-1.3) 4.1mg/dL (0.7-1.3) Estimated GFR (Cockcroft-Gault) 14.5 14.5 BUN/Creatinine Ratio 11 (6-20) Glucose Level 155mg/dL (70-99) 144mg/dL (70-99) Calcium Level 8.8mg/dL (8.5-10.1) 9.0mg/dL (8.5-10.1) Total Bilirubin 0.2mg/dL (0.2-1.0) Aspartate Amino Transf (AST/SGOT) 10U/L (15-37) Alanine Aminotransferase (ALT/SGPT) 17U/L (16-63) Alkaline Phosphatase 84U/L (46-116) Troponin I Quantitative < 0.017ng/mL (0.000-0.055) SI-Tsu-M-Type Natriuretic Peptide 875pg/mL (0-124) Total Protein 7.1g/dL (6.4-8.2) Albumin 3.3g/dL (3.4-5.0) Albumin/Globulin Ratio 0.9 (1.0-1.7) Influenza Type A Antigen Negative (NEGATIVE) Influenza Type B Antigen Negative (NEGATIVE) Glucose (Fingerstick) 203mg/dL (70-99) Phosphorus Level 4.3mg/dL (2.6-4.7) Magnesium Level 2.0mg/dL (1.8-2.4) Test 02/18/17 08:05 02/18/17 11:45 Glucose (Fingerstick) 149mg/dL (70-99) 168mg/dL (70-99) Assessment/Plan Assessment/Plan This patient with significant COPD and chronic renal failure comes in with respiratory failure that may be a combination of a COPD exacerbation with being formalwear O overloaded to the renal problems. Need to evaluate the left ventricular function to rule out systolic or diastolic dysfunction of the left ventricle as a cause for the patient's present problems. We will get an echocardiogram to evaluate this. I agree with diuresis. Thank you very much for asking me to participate in the care of this patient NEVILLE REEVES MD Feb 18, 2017 14:10
--- NOTE | 2017-02-18 14:27 | PDOC ---
PROGRESS NOTES Chief Complaint Chief Complaint 1. Pulm edema/vol overload on CXR with blunting of costophrenic angles 2. SHALOM on CKD, unknown stage 3. Overweight with mild pCM 4. AOCD 5. COPD, DM, HTN, - chronic stable History of Present Illness History of Present Illness CReatinine remains at 4.1 US kidneys: IMPRESSION Increased renal cortical echogenicity can be a finding of medical renal disease. NO other acute issues Undergoing 24 hr per renal, started today PlaN: CPM BMP carey BIPAP/CPAP 24 hr urine PT/OT Unknown home meds ([facility]) juli RN Taina Vitals Vitals Vital Signs Date Time Temp Pulse Resp B/P Pulse Ox O2 Delivery O2 Flow Rate FiO2 02/18/17 11:29 Room Air 02/18/17 11:00 98.6 99 20 173/83 92 2.0 98.6 Physical Exam General: Alert, Oriented X3, Cooperative, No acute distress Extremities: No clubbing, No cyanosis, No edema, Normal pulses, No tenderness/ swelling Skin: No rashes, No breakdown, No significant lesion Labs LABS Laboratory Tests Test 02/17/17 15:50 02/17/17 16:10 02/17/17 21:59 02/18/17 03:56 White Blood Count 10.4x10^3/uL (4.0-11.0) Red Blood Count 3.54x10^6/uL (4.30-5.70) Hemoglobin 10.5g/dL (13.0-17.5) Hematocrit 30.7% (39.0-53.0) Mean Corpuscular Volume 87fL (79-100) Mean Corpuscular Hemoglobin 30pg (25-35) Mean Corpuscular Hemoglobin Concent 34g/dL (31-37) Red Cell Distribution Width 14.3% (11.5-14.5) Platelet Count 255x10^3/uL (140-400) Neutrophils (%) (Auto) 76% (31-73) Lymphocytes (%) (Auto) 14% (24-48) Monocytes (%) (Auto) 7% (0-9) Eosinophils (%) (Auto) 2% (0-3) Basophils (%) (Auto) 1% (0-3) Neutrophils # (Auto) 7.9x10^3uL (1.8-7.7) Lymphocytes # (Auto) 1.5x10^3/uL (1.0-4.8) Monocytes # (Auto) 0.7x10^3/uL (0.0-1.1) Eosinophils # (Auto) 0.2x10^3/uL (0.0-0.7) Basophils # (Auto) 0.1x10^3/uL (0.0-0.2) Prothrombin Time 14.1SEC (11.7-14.0) Prothromb Time International Ratio 1.2 (0.8-1.1) Sodium Level 144mmol/L (136-145) 140mmol/L (136-145) Potassium Level 3.8mmol/L (3.5-5.1) 4.1mmol/L (3.5-5.1) Chloride Level 106mmol/L (98-107) 105mmol/L (98-107) Carbon Dioxide Level 24mmol/L (21-32) 22mmol/L (21-32) Anion Gap 14 (6-14) 13 (6-14) Blood Urea Nitrogen 45mg/dL (8-26) 46mg/dL (8-26) Creatinine 4.1mg/dL (0.7-1.3) 4.1mg/dL (0.7-1.3) Estimated GFR (Cockcroft-Gault) 14.5 14.5 BUN/Creatinine Ratio 11 (6-20) Glucose Level 155mg/dL (70-99) 144mg/dL (70-99) Calcium Level 8.8mg/dL (8.5-10.1) 9.0mg/dL (8.5-10.1) Total Bilirubin 0.2mg/dL (0.2-1.0) Aspartate Amino Transf (AST/SGOT) 10U/L (15-37) Alanine Aminotransferase (ALT/SGPT) 17U/L (16-63) Alkaline Phosphatase 84U/L (46-116) Troponin I Quantitative < 0.017ng/mL (0.000-0.055) MZ-Kra-A-Type Natriuretic Peptide 875pg/mL (0-124) Total Protein 7.1g/dL (6.4-8.2) Albumin 3.3g/dL (3.4-5.0) Albumin/Globulin Ratio 0.9 (1.0-1.7) Influenza Type A Antigen Negative (NEGATIVE) Influenza Type B Antigen Negative (NEGATIVE) Glucose (Fingerstick) 203mg/dL (70-99) Phosphorus Level 4.3mg/dL (2.6-4.7) Magnesium Level 2.0mg/dL (1.8-2.4) Test 02/18/17 08:05 02/18/17 11:45 Glucose (Fingerstick) 149mg/dL (70-99) 168mg/dL (70-99) Review of Systems Review of Systems no n/v/d/abd pain, cp Assessment and Plan Assessmemt and Plan Problems Medical Problems: (1) CKD (chronic kidney disease) Status: Acute (2) Hypoxia Status: Acute (3) Pulmonary edema Status: Acute (4) Renal failure Status: Acute Problems: Comment Review of Relevant I have reviewed the following items diana (where applicable) has been applied. Labs Laboratory Tests Test 02/17/17 15:50 02/17/17 16:10 02/17/17 21:59 02/18/17 03:56 White Blood Count 10.4x10^3/uL (4.0-11.0) Red Blood Count 3.54x10^6/uL (4.30-5.70) Hemoglobin 10.5g/dL (13.0-17.5) Hematocrit 30.7% (39.0-53.0) Mean Corpuscular Volume 87fL (79-100) Mean Corpuscular Hemoglobin 30pg (25-35) Mean Corpuscular Hemoglobin Concent 34g/dL (31-37) Red Cell Distribution Width 14.3% (11.5-14.5) Platelet Count 255x10^3/uL (140-400) Neutrophils (%) (Auto) 76% (31-73) Lymphocytes (%) (Auto) 14% (24-48) Monocytes (%) (Auto) 7% (0-9) Eosinophils (%) (Auto) 2% (0-3) Basophils (%) (Auto) 1% (0-3) Neutrophils # (Auto) 7.9x10^3uL (1.8-7.7) Lymphocytes # (Auto) 1.5x10^3/uL (1.0-4.8) Monocytes # (Auto) 0.7x10^3/uL (0.0-1.1) Eosinophils # (Auto) 0.2x10^3/uL (0.0-0.7) Basophils # (Auto) 0.1x10^3/uL (0.0-0.2) Prothrombin Time 14.1SEC (11.7-14.0) Prothromb Time International Ratio 1.2 (0.8-1.1) Sodium Level 144mmol/L (136-145) 140mmol/L (136-145) Potassium Level 3.8mmol/L (3.5-5.1) 4.1mmol/L (3.5-5.1) Chloride Level 106mmol/L (98-107) 105mmol/L (98-107) Carbon Dioxide Level 24mmol/L (21-32) 22mmol/L (21-32) Anion Gap 14 (6-14) 13 (6-14) Blood Urea Nitrogen 45mg/dL (8-26) 46mg/dL (8-26) Creatinine 4.1mg/dL (0.7-1.3) 4.1mg/dL (0.7-1.3) Estimated GFR (Cockcroft-Gault) 14.5 14.5 BUN/Creatinine Ratio 11 (6-20) Glucose Level 155mg/dL (70-99) 144mg/dL (70-99) Calcium Level 8.8mg/dL (8.5-10.1) 9.0mg/dL (8.5-10.1) Total Bilirubin 0.2mg/dL (0.2-1.0) Aspartate Amino Transf (AST/SGOT) 10U/L (15-37) Alanine Aminotransferase (ALT/SGPT) 17U/L (16-63) Alkaline Phosphatase 84U/L (46-116) Troponin I Quantitative < 0.017ng/mL (0.000-0.055) OH-Mcp-H-Type Natriuretic Peptide 875pg/mL (0-124) Total Protein 7.1g/dL (6.4-8.2) Albumin 3.3g/dL (3.4-5.0) Albumin/Globulin Ratio 0.9 (1.0-1.7) Influenza Type A Antigen Negative (NEGATIVE) Influenza Type B Antigen Negative (NEGATIVE) Glucose (Fingerstick) 203mg/dL (70-99) Phosphorus Level 4.3mg/dL (2.6-4.7) Magnesium Level 2.0mg/dL (1.8-2.4) Test 02/18/17 08:05 02/18/17 11:45 Glucose (Fingerstick) 149mg/dL (70-99) 168mg/dL (70-99) Laboratory Tests Test 02/17/17 15:50 02/17/17 16:10 02/17/17 21:59 02/18/17 03:56 White Blood Count 10.4x10^3/uL (4.0-11.0) Red Blood Count 3.54x10^6/uL (4.30-5.70) Hemoglobin 10.5g/dL (13.0-17.5) Hematocrit 30.7% (39.0-53.0) Mean Corpuscular Volume 87fL (79-100) Mean Corpuscular Hemoglobin 30pg (25-35) Mean Corpuscular Hemoglobin Concent 34g/dL (31-37) Red Cell Distribution Width 14.3% (11.5-14.5) Platelet Count 255x10^3/uL (140-400) Neutrophils (%) (Auto) 76% (31-73) Lymphocytes (%) (Auto) 14% (24-48) Monocytes (%) (Auto) 7% (0-9) Eosinophils (%) (Auto) 2% (0-3) Basophils (%) (Auto) 1% (0-3) Neutrophils # (Auto) 7.9x10^3uL (1.8-7.7) Lymphocytes # (Auto) 1.5x10^3/uL (1.0-4.8) Monocytes # (Auto) 0.7x10^3/uL (0.0-1.1) Eosinophils # (Auto) 0.2x10^3/uL (0.0-0.7) Basophils # (Auto) 0.1x10^3/uL (0.0-0.2) Prothrombin Time 14.1SEC (11.7-14.0) Prothromb Time International Ratio 1.2 (0.8-1.1) Sodium Level 144mmol/L (136-145) 140mmol/L (136-145) Potassium Level 3.8mmol/L (3.5-5.1) 4.1mmol/L (3.5-5.1) Chloride Level 106mmol/L (98-107) 105mmol/L (98-107) Carbon Dioxide Level 24mmol/L (21-32) 22mmol/L (21-32) Anion Gap 14 (6-14) 13 (6-14) Blood Urea Nitrogen 45mg/dL (8-26) 46mg/dL (8-26) Creatinine 4.1mg/dL (0.7-1.3) 4.1mg/dL (0.7-1.3) Estimated GFR (Cockcroft-Gault) 14.5 14.5 BUN/Creatinine Ratio 11 (6-20) Glucose Level 155mg/dL (70-99) 144mg/dL (70-99) Calcium Level 8.8mg/dL (8.5-10.1) 9.0mg/dL (8.5-10.1) Total Bilirubin 0.2mg/dL (0.2-1.0) Aspartate Amino Transf (AST/SGOT) 10U/L (15-37) Alanine Aminotransferase (ALT/SGPT) 17U/L (16-63) Alkaline Phosphatase 84U/L (46-116) Troponin I Quantitative < 0.017ng/mL (0.000-0.055) EP-Uyi-O-Type Natriuretic Peptide 875pg/mL (0-124) Total Protein 7.1g/dL (6.4-8.2) Albumin 3.3g/dL (3.4-5.0) Albumin/Globulin Ratio 0.9 (1.0-1.7) Influenza Type A Antigen Negative (NEGATIVE) Influenza Type B Antigen Negative (NEGATIVE) Glucose (Fingerstick) 203mg/dL (70-99) Phosphorus Level 4.3mg/dL (2.6-4.7) Magnesium Level 2.0mg/dL (1.8-2.4) Test 02/18/17 08:05 02/18/17 11:45 Glucose (Fingerstick) 149mg/dL (70-99) 168mg/dL (70-99) Medications Current Medications Albuterol/ Ipratropium (Duoneb) 3 ml STK-MED ONCE .ROUTE ; Start 02/17/17 at 16: 09; Stop 02/17/17 at 16:10; Status DC Furosemide (Lasix) 80 mg 1X ONCE IVP Last administered on 02/17/17t 17:51; Start 02/17/17 at 17:30; Stop 02/17/17 at 17:31; Status DC Ondansetron HCl (Zofran) 4 mg PRN Q6HRS PRN IV NAUSEA/VOMITING; Start 02/17/17 at 19:00 Prochlorperazine Edisylate (Compazine) 10 mg PRN Q6HRS PRN IV NAUSEA/VOMITING; Start 02/17/17 at 19:00 Prochlorperazine (Compazine) 25 mg PRN Q12HR PRN CO NAUSEA/VOMITING; Start at 19:00 Al Hydroxide/Mg Hydroxide (Mylanta Plus Xs) 30 ml PRN Q3HRS PRN PO HEARTBURN / GAS; Start 02/17/17 at 19:00 Calcium Carbonate/ Glycine (Tums) 500 mg PRN Q3HRS PRN PO UPSET STOMACH; Start 02/17/17 at 19:00 Zolpidem Tartrate (Ambien) 5 mg PRN QHS PRN PO INSOMNIA, MAY REPEAT IN 1HR; Start 02/17/17 at 19:00 Oxycodone HCl (Roxicodone) 5 mg PRN Q3HRS PRN PO BREAKTHROUGH PAIN; Start 02/17 at 19:00 Morphine Sulfate 1 mg PRN Q1HR PRN IV PAIN; Start 02/17/17 at 19:00 Acetaminophen (Tylenol) 650 mg PRN Q6HRS PRN PO MILD PAIN / TEMP; Start at 19:00 Senna/Docusate Sodium (Senna Plus) 1 tab BID PO ; Start 02/17/17 at 21:00 Docusate Sodium (Colace) 100 mg BID PO ; Start 02/17/17 at 21:00 Magnesium Hydroxide (Milk Of Magnesia) 2,400 mg PRN Q12HR PRN PO CONSTIPATION; Start 02/17/17 at 19:00 Lactulose 20 gm PRN Q12HR PRN PO CONSTIPATION; Start 02/17/17 at 19:00 Bisacodyl (Dulcolax Supp) 10 mg PRN DAILY PRN CO CONSTIPATION; Start 02/17/17 at 19:00 Heparin Sodium (Porcine) 5,000 unit Q12HR SQ ; Start 02/17/17 at 21:00 Insulin Aspart (Novolog) 0-9 UNITS TIDWMEALS SQ Last administered on 02/17/17 22:27; Start 02/17/17 at 19:30 Dextrose 12.5 gm PRN Q15MIN PRN IV SEE COMMENTS; Start 02/17/17 at 19:00 Insulin Aspart (Novolog) 0-5 UNITS TIDWMEALS SQ ; Start 02/18/17 at 08:00; Status UNV Dextrose 12.5 gm PRN Q15MIN PRN IV SEE COMMENTS; Start 02/17/17 at 19:15; Status UNV Alprazolam (Xanax) 1 mg PRN Q6HRS PRN PO ANXIETY / AGITATION Last administered on 02/18/17 11:46; Start 02/17/17 at 21:30 Amitriptyline HCl (Elavil) 50 mg PRN QHS PRN PO INSOMNIA Last administered on 22:22; Start 02/17/17 at 21:30 Albuterol/ Ipratropium (Duoneb) 3 ml RTQID NEB Last administered on 02/18/17 11:28; Start 02/17/17 at 21:30 Vitals/I & O Vital Sign - Last 24 Hours 02/17/17 02/17/17 02/17/17 02/17/17 15:31 16:00 16:11 16:30 Temp 98.3 98.3 Pulse 107 96 98 Resp B/P 149/75 155/70 163/68 Pulse Ox 90 94 91 96 O2 Delivery Room Air Nasal Cannula Room Air Nasal Cannula O2 Flow Rate 2 2 02/17/17 02/17/17 02/17/17 02/17/17 17:00 17:30 18:00 19:19 Pulse 92 96 108 108 Resp B/P 173/70 172/75 173/94 188/86 Pulse Ox 95 95 96 95 O2 Delivery Nasal Cannula Nasal Cannula Nasal Cannula Nasal Cannula O2 Flow Rate 2 2 2 2 02/17/17 02/17/17 02/17/1702/17/17 20:00 20:00 20:48 21:57 Temp 97.7 97.7 97.7 97.7 Pulse 95 95 Resp 20 B/P 177/85 177/85 Pulse Ox 93 93 89 O2 Delivery Nasal Cannula Nasal Cannula Nasal Cannula Room Air O2 Flow Rate 2.0 2.0 2.0 02/17/17 02/18/17 02/18/17 02/18/17 23:18 03:00 07:00 07:27 Temp 97.7 98.3 98.1 97.7 98.3 98.1 Pulse 105 96 93 Resp 18 B/P 182/96 136/63 137/77 Pulse Ox 96 92 89 91 O2 Delivery Nasal Cannula Room Air Nasal Cannula Room Air O2 Flow Rate 2.0 2.0 02/18/17 02/18/17 02/18/17 08:00 11:00 11:29 Temp 98.6 98.6 Pulse 99 Resp 20 B/P 173/83 Pulse Ox 92 O2 Delivery Nasal Cannula Nasal Cannula Room Air O2 Flow Rate 2.0 2.0 Intake and Output 02/17/17 02/17/17 02/18/17 15:00 23:00 07:00 Intake Total 120 ml 240 ml Balance 120 ml 240 ml JUSTINO KOENIG MD Feb 18, 2017 14:27
[2017-02-18 15:55] VITALS: BP 168/78
--- NOTE | 2017-02-18 17:27 | CONS ---
DATE OF CONSULTATION: REQUESTING PHYSICIAN: Hospitalist. REASON FOR CONSULTATION: Renal failure. HISTORY OF PRESENT ILLNESS: This is a 71-year-old gentleman with history of diabetes mellitus, hypertension and chronic kidney disease. The patient is currently admitted to the hospital with increasing shortness of breath. He is found to have pulmonary edema. He is undergoing diuresis with some improvement. The patient has undergone renal ultrasound, reveals right kidney 7 cm and left 10.9 cm. No hydronephrosis or renal mass. His laboratories were notable for creatinine of 4.1, GFR 14.5. The patient denies difficulty urination, nephrolithiasis or gross hematuria. The patient typically receives his health care through the [facility]. PAST MEDICAL HISTORY: 1. Diabetes mellitus. 2. Hypertension. 3. Chronic kidney disease -- appears to be advanced. 4. COPD. 5. Anemia. ALLERGIES: None. MEDICATIONS: Noted. FAMILY HISTORY: Noncontributory. SOCIAL HISTORY: The patient's is on hospice. REVIEW OF SYSTEMS: No headaches, sinus problem, nasal drainage, epistaxis, change in vision or hearing, no difficulty swallowing. No fever, chills, cough, sputum production, or hemoptysis. No chest pain. He did have shortness of breath and dyspnea on exertion on presentation. He has no orthopnea. No abdominal pain. No upper or lower gastrointestinal blood loss. No nausea, vomiting, diarrhea, seizures or malignancies. PHYSICAL EXAMINATION: GENERAL APPEARANCE: The patient is awake, conversant and appropriate. HEENT: Clear. NECK: No increased JVD, no thyromegaly, mass or adenopathy. LUNGS: Decreased breath sound at bases, otherwise clear. CARDIAC: Without S3 or rub. ABDOMEN: Soft, nontender, no bruits. EXTREMITIES: Without edema. NEUROLOGIC: Nonfocal localizing. PSYCHIATRIC: Good attention to detail, appropriate affect. LABORATORY DATA: As above with creatinine of 4.1, GFR 14.5. Potassium 4.1, CO2 22. Hemoglobin 10.5, hematocrit 30%. IMPRESSION: 1. Chronic kidney disease stage 4, likely secondary to diabetic nephropathy and hypertensive/ ischemic renal disease. 2. Pulmonary edema -- improving. 3. Diabetes mellitus with complications as described above. 4. Hypertension. RECOMMENDATIONS: 1. Ongoing diuresis. 2. By renal ultrasound, the patient is functionally uninephric. 3. ____ for total protein. 4. If the patient does not improve, may need elective initiation of dialysis in the very near future. MANINDER GUTIERREZ MD DR: SERAFIN/mathieu JOB#: [id number] / [id number]
[2017-02-18 19:00] VITALS: BP 171/82
[2017-02-18 23:00] VITALS: BP 173/89
[2017-02-19] MEDS ORDERED: ALBUTEROL SULFATE 2.5 MG/3 ML NEBU. NEB ONE
[2017-02-19] MEDS: ALPRAZOLAM 1 MG TABLET PO PRN ×2 (00:03→21:11)
[2017-02-19] MEDS: ZOLPIDEM 5 MG TABLET. PO PRN ×2 (00:03→21:11)
[2017-02-19 03:00] VITALS: BP 175/93
[2017-02-19 05:52] LABS: CALCIUM 9.3 mg/dL (8.5-10.1); GFR 14.9; POTASSIUM 3.6 mmol/L (3.5-5.1)
[2017-02-19 07:00] VITALS: BP 179/88
[2017-02-19] MEDS: INSULIN ASPART 300 UNITS/3 ML INSULN.PEN SQ SCH ×3 (07:55→16:28)
[2017-02-19] MEDS: DOCUSATE SODIUM 100 MG CAPSULE PO SCH ×2 (08:40→21:11)
[2017-02-19] MEDS: SENNOSIDES/DOCUSATE 8.6/50MG TABLET. PO SCH ×2 (08:41→21:11)
[2017-02-19] MEDS: HEPARIN PF for SUB-Q USE 5,000 UNIT/0.5 ML VIAL. SQ SCH ×2 (08:41→21:00)
[2017-02-19] MEDS: IPRATRPIUM/ALBUTEROL 0.5/2.5MG 3 ML NEBU. NEB SCH ×4 (08:50→19:23)
[2017-02-19 10:33] VITALS: BP 173/87
--- NOTE | 2017-02-19 13:19 | PDOC ---
PROGRESS NOTES Chief Complaint Chief Complaint 1. Pulm edema/vol overload on CXR with blunting of costophrenic angles 2. SHALOM on CKD, unknown stage 3. Overweight with mild pCM 4. AOCD 5. COPD, DM, HTN, - chronic stable History of Present Illness History of Present Illness CReatinine remains at 4.1 US kidneys: IMPRESSION Increased renal cortical echogenicity can be a finding of medical renal disease. NO other acute issues Undergoing 24 hr per renal, will end 1 pM later For echo later PlaN: CPM BMP carey BIPAP/CPAP 24 hr urine to end later 1 PM monday PT/OT [facility] Echo today dw RN Taina Vitals Vitals Vital Signs Date Time Temp Pulse Resp B/P Pulse Ox O2 Delivery O2 Flow Rate FiO2 02/19/17 11:52 Nasal Cannula 2.0 02/19/17 10:33 97.9 83 20 173/87 95 97.9 Physical Exam General: Alert, Oriented X3, Cooperative, No acute distress Extremities: No clubbing, No cyanosis, No edema, Normal pulses, No tenderness/ swelling Skin: No rashes, No breakdown, No significant lesion Labs LABS Laboratory Tests Test 02/18/17 16:34 02/18/17 20:50 02/19/17 04:15 02/19/17 07:47 Glucose (Fingerstick) 158mg/dL (70-99) 191mg/dL (70-99) 133mg/dL (70-99) Sodium Level 139mmol/L (136-145) Potassium Level 3.6mmol/L (3.5-5.1) Chloride Level 102mmol/L (98-107) Carbon Dioxide Level 23mmol/L (21-32) Anion Gap 14 (6-14) Blood Urea Nitrogen 47mg/dL (8-26) Creatinine 4.0mg/dL (0.7-1.3) Estimated GFR (Cockcroft-Gault) 14.9 Glucose Level 159mg/dL (70-99) Calcium Level 9.3mg/dL (8.5-10.1) Test 02/19/17 10:17 Glucose (Fingerstick) 200mg/dL (70-99) Review of Systems Review of Systems no soa, com or abd pain. n.v.d Assessment and Plan Assessmemt and Plan Problems Medical Problems: (1) CKD (chronic kidney disease) Status: Acute (2) Hypoxia Status: Acute (3) Pulmonary edema Status: Acute (4) Renal failure Status: Acute Problems: Comment Review of Relevant I have reviewed the following items diana (where applicable) has been applied. Labs Laboratory Tests Test 02/17/17 15:50 02/17/17 16:10 02/17/17 21:59 02/18/17 03:56 White Blood Count 10.4x10^3/uL (4.0-11.0) Red Blood Count 3.54x10^6/uL (4.30-5.70) Hemoglobin 10.5g/dL (13.0-17.5) Hematocrit 30.7% (39.0-53.0) Mean Corpuscular Volume 87fL (79-100) Mean Corpuscular Hemoglobin 30pg (25-35) Mean Corpuscular Hemoglobin Concent 34g/dL (31-37) Red Cell Distribution Width 14.3% (11.5-14.5) Platelet Count 255x10^3/uL (140-400) Neutrophils (%) (Auto) 76% (31-73) Lymphocytes (%) (Auto) 14% (24-48) Monocytes (%) (Auto) 7% (0-9) Eosinophils (%) (Auto) 2% (0-3) Basophils (%) (Auto) 1% (0-3) Neutrophils # (Auto) 7.9x10^3uL (1.8-7.7) Lymphocytes # (Auto) 1.5x10^3/uL (1.0-4.8) Monocytes # (Auto) 0.7x10^3/uL (0.0-1.1) Eosinophils # (Auto) 0.2x10^3/uL (0.0-0.7) Basophils # (Auto) 0.1x10^3/uL (0.0-0.2) Prothrombin Time 14.1SEC (11.7-14.0) Prothromb Time International Ratio 1.2 (0.8-1.1) Sodium Level 144mmol/L (136-145) 140mmol/L (136-145) Potassium Level 3.8mmol/L (3.5-5.1) 4.1mmol/L (3.5-5.1) Chloride Level 106mmol/L (98-107) 105mmol/L (98-107) Carbon Dioxide Level 24mmol/L (21-32) 22mmol/L (21-32) Anion Gap 14 (6-14) 13 (6-14) Blood Urea Nitrogen 45mg/dL (8-26) 46mg/dL (8-26) Creatinine 4.1mg/dL (0.7-1.3) 4.1mg/dL (0.7-1.3) Estimated GFR (Cockcroft-Gault) 14.5 14.5 BUN/Creatinine Ratio 11 (6-20) Glucose Level 155mg/dL (70-99) 144mg/dL (70-99) Calcium Level 8.8mg/dL (8.5-10.1) 9.0mg/dL (8.5-10.1) Total Bilirubin 0.2mg/dL (0.2-1.0) Aspartate Amino Transf (AST/SGOT) 10U/L (15-37) Alanine Aminotransferase (ALT/SGPT) 17U/L (16-63) Alkaline Phosphatase 84U/L (46-116) Troponin I Quantitative < 0.017ng/mL (0.000-0.055) TB-Bjk-K-Type Natriuretic Peptide 875pg/mL (0-124) Total Protein 7.1g/dL (6.4-8.2) Albumin 3.3g/dL (3.4-5.0) Albumin/Globulin Ratio 0.9 (1.0-1.7) Influenza Type A Antigen Negative (NEGATIVE) Influenza Type B Antigen Negative (NEGATIVE) Glucose (Fingerstick) 203mg/dL (70-99) Phosphorus Level 4.3mg/dL (2.6-4.7) Magnesium Level 2.0mg/dL (1.8-2.4) Test 02/18/17 08:05 02/18/17 11:45 02/18/17 16:34 02/18/17 20:50 Glucose (Fingerstick) 149mg/dL (70-99) 168mg/dL (70-99) 158mg/dL (70-99) 191mg/dL (70-99) Test 02/19/17 04:15 02/19/17 07:47 02/19/17 10:17 Sodium Level 139mmol/L (136-145) Potassium Level 3.6mmol/L (3.5-5.1) Chloride Level 102mmol/L (98-107) Carbon Dioxide Level 23mmol/L (21-32) Anion Gap 14 (6-14) Blood Urea Nitrogen 47mg/dL (8-26) Creatinine 4.0mg/dL (0.7-1.3) Estimated GFR (Cockcroft-Gault) 14.9 Glucose Level 159mg/dL (70-99) Calcium Level 9.3mg/dL (8.5-10.1) Glucose (Fingerstick) 133mg/dL (70-99) 200mg/dL (70-99) Laboratory Tests Test 02/18/17 16:34 02/18/17 20:50 02/19/17 04:15 02/19/17 07:47 Glucose (Fingerstick) 158mg/dL (70-99) 191mg/dL (70-99) 133mg/dL (70-99) Sodium Level 139mmol/L (136-145) Potassium Level 3.6mmol/L (3.5-5.1) Chloride Level 102mmol/L (98-107) Carbon Dioxide Level 23mmol/L (21-32) Anion Gap 14 (6-14) Blood Urea Nitrogen 47mg/dL (8-26) Creatinine 4.0mg/dL (0.7-1.3) Estimated GFR (Cockcroft-Gault) 14.9 Glucose Level 159mg/dL (70-99) Calcium Level 9.3mg/dL (8.5-10.1) Test 02/19/17 10:17 Glucose (Fingerstick) 200mg/dL (70-99) Medications Current Medications Albuterol/ Ipratropium (Duoneb) 3 ml STK-MED ONCE .ROUTE ; Start 02/17/17 at 16: 09; Stop 02/17/17 at 16:10; Status DC Furosemide (Lasix) 80 mg 1X ONCE IVP Last administered on 02/17/17t 17:51; Start 02/17/17 at 17:30; Stop 02/17/17 at 17:31; Status DC Ondansetron HCl (Zofran) 4 mg PRN Q6HRS PRN IV NAUSEA/VOMITING; Start 02/17/17 at 19:00 Prochlorperazine Edisylate (Compazine) 10 mg PRN Q6HRS PRN IV NAUSEA/VOMITING; Start 02/17/17 at 19:00 Prochlorperazine (Compazine) 25 mg PRN Q12HR PRN MT NAUSEA/VOMITING; Start at 19:00 Al Hydroxide/Mg Hydroxide (Mylanta Plus Xs) 30 ml PRN Q3HRS PRN PO HEARTBURN / GAS; Start 02/17/17 at 19:00 Calcium Carbonate/ Glycine (Tums) 500 mg PRN Q3HRS PRN PO UPSET STOMACH; Start 02/17/17 at 19:00 Zolpidem Tartrate (Ambien) 5 mg PRN QHS PRN PO INSOMNIA, MAY REPEAT IN 1HR Last administered on 02/19/17 00:03; Start 02/17/17 at 19:00 Oxycodone HCl (Roxicodone) 5 mg PRN Q3HRS PRN PO BREAKTHROUGH PAIN; Start 02/17 at 19:00 Morphine Sulfate 1 mg PRN Q1HR PRN IV PAIN; Start 02/17/17 at 19:00 Acetaminophen (Tylenol) 650 mg PRN Q6HRS PRN PO MILD PAIN / TEMP; Start at 19:00 Senna/Docusate Sodium (Senna Plus) 1 tab BID PO Last administered on 02/18/17 20:54; Start 02/17/17 at 21:00 Docusate Sodium (Colace) 100 mg BID PO Last administered on 02/18/17 20:54; Start 02/17/17 at 21:00 Magnesium Hydroxide (Milk Of Magnesia) 2,400 mg PRN Q12HR PRN PO CONSTIPATION; Start 02/17/17 at 19:00 Lactulose 20 gm PRN Q12HR PRN PO CONSTIPATION; Start 02/17/17 at 19:00 Bisacodyl (Dulcolax Supp) 10 mg PRN DAILY PRN MT CONSTIPATION; Start 02/17/17 at 19:00 Heparin Sodium (Porcine) 5,000 unit Q12HR SQ ; Start 02/17/17 at 21:00 Insulin Aspart (Novolog) 0-9 UNITS TIDWMEALS SQ Last administered on 02/19/17 12:02; Start 02/17/17 at 19:30 Dextrose 12.5 gm PRN Q15MIN PRN IV SEE COMMENTS; Start 02/17/17 at 19:00 Insulin Aspart (Novolog) 0-5 UNITS TIDWMEALS SQ ; Start 02/18/17 at 08:00; Status UNV Dextrose 12.5 gm PRN Q15MIN PRN IV SEE COMMENTS; Start 02/17/17 at 19:15; Status UNV Alprazolam (Xanax) 1 mg PRN Q6HRS PRN PO ANXIETY / AGITATION Last administered on 02/19/17 00:03; Start 02/17/17 at 21:30 Amitriptyline HCl (Elavil) 50 mg PRN QHS PRN PO INSOMNIA Last administered on 22:22; Start 02/17/17 at 21:30 Albuterol/ Ipratropium (Duoneb) 3 ml RTQID NEB Last administered on 02/19/17 11:50; Start 02/17/17 at 21:30 Albuterol Sulfate (Ventolin Neb Soln) 2.5 mg 1X ONCE NEB Last administered on 02/18/17 23:54; Start 02/19/17 at 00:00; Stop 02/19/17 at 00:01; Status DC Vitals/I & O Vital Sign - Last 24 Hours 02/18/17 02/18/17 02/18/17 02/18/17 15:53 15:55 19:00 19:27 Temp 96.6 98.1 96.6 98.1 Pulse 86 95 Resp B/P 168/78 171/82 Pulse Ox 94 93 O2 Delivery Room Air Nasal Cannula Nasal Cannula Nasal Cannula O2 Flow Rate 2.0 2.0 2.0 02/18/17 02/18/17 02/18/17 02/19/17 20:00 23:00 23:56 03:00 Temp 97.9 98.2 97.9 98.2 Pulse 94 97 Resp B/P 173/89 175/93 Pulse Ox 96 94 97 O2 Delivery Nasal Cannula Nasal Cannula Nasal Cannula Nasal Cannula O2 Flow Rate 2.0 2.0 2.0 2.0 02/19/17 02/19/17 02/19/17 02/19/17 07:00 08:00 08:51 10:33 Temp 97.9 97.9 97.9 97.9 Pulse 99 83 Resp 20 20 B/P 179/88 173/87 Pulse Ox 93 98 95 O2 Delivery Nasal Cannula Nasal Cannula Nasal Cannula Nasal Cannula O2 Flow Rate 2.0 2.0 2.0 2.0 02/19/17 11:52 O2 Delivery Nasal Cannula O2 Flow Rate 2.0 Intake and Output 02/18/17 02/18/17 02/19/17 15:00 23:00 07:00 Intake Total 100 ml 100 ml 240 ml Output Total 140 ml 100 ml 850 ml Balance -40 ml 0 ml -610 ml JUSTINO KOENIG MD Feb 19, 2017 13:19
[2017-02-19 15:21] VITALS: BP 170/84
[2017-02-19 19:00] VITALS: BP 166/71
--- NOTE | 2017-02-19 21:31 | PDOC ---
Provider Note Provider Note Provider Note RENAL F/U : KHOI S : No new issues. Doing better. O : Doing better/stable. VSS Afebrile. Neck : Supple. Lungs : Non labored. CVS : RRR ABD : Benign. Ext : Trace edema. Alert. Labs, I/Os reviewed. A/P : ARF : ATN. Cr stable. ? baseline. 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 d/w pt Headed towards HD REGINO WESTFALL MD Feb 19, 2017 21:31
[2017-02-19 23:00] VITALS: BP 161/75
[2017-02-20 03:00] VITALS: BP 170/83
[2017-02-20 05:01] LABS: HEMATOCRIT 30.7 % (39.0-53.0); HEMOGLOBIN 10.2 g/dL (13.0-17.5)
[2017-02-20 07:00] VITALS: BP 172/85
[2017-02-20] MEDS: IPRATRPIUM/ALBUTEROL 0.5/2.5MG 3 ML NEBU. NEB SCH ×4 (07:26→19:11)
[2017-02-20] MEDS: SENNOSIDES/DOCUSATE 8.6/50MG TABLET. PO SCH ×2 (07:56→20:40)
[2017-02-20] MEDS: INSULIN ASPART 300 UNITS/3 ML INSULN.PEN SQ SCH ×3 (07:57→17:00)
[2017-02-20] MEDS: DOCUSATE SODIUM 100 MG CAPSULE PO SCH (07:57)
[2017-02-20] MEDS: HEPARIN PF for SUB-Q USE 5,000 UNIT/0.5 ML VIAL. SQ SCH ×2 (07:57→20:40)
--- NOTE | 2017-02-20 10:47 | PDOC ---
PROGRESS NOTES Chief Complaint Chief Complaint 1. HTN not controlled. 2. SHALOM on CKD, unknown stage 3. Overweight with mild PCM 4. AOCD 5. COPD, DM, HTN, - chronic stable Plan add Norvasc and Lasix, BP not controlled. ECHO pending awaiting final recommendation from nephrology labs reviewed. SSI History of Present Illness History of Present Illness no acute events no sob no chest pain Vitals Vitals Vital Signs Date Time Temp Pulse Resp B/P Pulse Ox O2 Delivery O2 Flow Rate FiO2 02/20/17 07:28 98 Nasal Cannula 2.0 02/20/17 07:00 97.8 77 18 172/85 97.8 Physical Exam General: Alert, Oriented X3, Cooperative, No acute distress Extremities: No clubbing, No cyanosis, No edema, Normal pulses, No tenderness/ swelling Skin: No rashes, No breakdown, No significant lesion Labs LABS Laboratory Tests Test 02/19/17 15:58 02/19/17 21:15 02/20/17 04:05 02/20/17 07:42 Glucose (Fingerstick) 129mg/dL (70-99) 220mg/dL (70-99) 137mg/dL (70-99) Hemoglobin 10.2g/dL (13.0-17.5) Hematocrit 30.7% (39.0-53.0) Mean Corpuscular Hemoglobin Concent 33g/dL (31-37) Assessment and Plan Assessmemt and Plan Problems Medical Problems: (1) CKD (chronic kidney disease) Status: Acute (2) Hypoxia Status: Acute (3) Pulmonary edema Status: Acute (4) Renal failure Status: Acute Problems: Comment Review of Relevant I have reviewed the following items diana (where applicable) has been applied. Labs Laboratory Tests Test 02/18/17 11:45 02/18/17 16:34 02/18/17 20:50 02/19/17 04:15 Glucose (Fingerstick) 168mg/dL (70-99) 158mg/dL (70-99) 191mg/dL (70-99) Sodium Level 139mmol/L (136-145) Potassium Level 3.6mmol/L (3.5-5.1) Chloride Level 102mmol/L (98-107) Carbon Dioxide Level 23mmol/L (21-32) Anion Gap 14 (6-14) Blood Urea Nitrogen 47mg/dL (8-26) Creatinine 4.0mg/dL (0.7-1.3) Estimated GFR (Cockcroft-Gault) 14.9 Glucose Level 159mg/dL (70-99) Calcium Level 9.3mg/dL (8.5-10.1) Test 02/19/17 07:47 02/19/17 10:17 02/19/17 15:58 02/19/17 21:15 Glucose (Fingerstick) 133mg/dL (70-99) 200mg/dL (70-99) 129mg/dL (70-99) 220mg/dL (70-99) Test 02/20/17 04:05 02/20/17 07:42 Hemoglobin 10.2g/dL (13.0-17.5) Hematocrit 30.7% (39.0-53.0) Mean Corpuscular Hemoglobin Concent 33g/dL (31-37) Glucose (Fingerstick) 137mg/dL (70-99) Laboratory Tests Test 02/19/17 15:58 02/19/17 21:15 02/20/17 04:05 02/20/17 07:42 Glucose (Fingerstick) 129mg/dL (70-99) 220mg/dL (70-99) 137mg/dL (70-99) Hemoglobin 10.2g/dL (13.0-17.5) Hematocrit 30.7% (39.0-53.0) Mean Corpuscular Hemoglobin Concent 33g/dL (31-37) Medications Current Medications Albuterol/ Ipratropium (Duoneb) 3 ml STK-MED ONCE .ROUTE ; Start 02/17/17 at 16: 09; Stop 02/17/17 at 16:10; Status DC Furosemide (Lasix) 80 mg 1X ONCE IVP Last administered on 02/17/17t 17:51; Start 02/17/17 at 17:30; Stop 02/17/17 at 17:31; Status DC Ondansetron HCl (Zofran) 4 mg PRN Q6HRS PRN IV NAUSEA/VOMITING; Start 02/17/17 at 19:00 Prochlorperazine Edisylate (Compazine) 10 mg PRN Q6HRS PRN IV NAUSEA/VOMITING; Start 02/17/17 at 19:00 Prochlorperazine (Compazine) 25 mg PRN Q12HR PRN CO NAUSEA/VOMITING; Start at 19:00 Al Hydroxide/Mg Hydroxide (Mylanta Plus Xs) 30 ml PRN Q3HRS PRN PO HEARTBURN / GAS; Start 02/17/17 at 19:00 Calcium Carbonate/ Glycine (Tums) 500 mg PRN Q3HRS PRN PO UPSET STOMACH; Start 02/17/17 at 19:00 Zolpidem Tartrate (Ambien) 5 mg PRN QHS PRN PO INSOMNIA, MAY REPEAT IN 1HR Last administered on 02/19/17 21:11; Start 02/17/17 at 19:00 Oxycodone HCl (Roxicodone) 5 mg PRN Q3HRS PRN PO BREAKTHROUGH PAIN; Start 02/17 at 19:00 Morphine Sulfate 1 mg PRN Q1HR PRN IV PAIN; Start 02/17/17 at 19:00 Acetaminophen (Tylenol) 650 mg PRN Q6HRS PRN PO MILD PAIN / TEMP; Start at 19:00 Senna/Docusate Sodium (Senna Plus) 1 tab BID PO Last administered on 02/20/17 07:56; Start 02/17/17 at 21:00 Docusate Sodium (Colace) 100 mg BID PO Last administered on 02/20/17 07:57; Start 02/17/17 at 21:00 Magnesium Hydroxide (Milk Of Magnesia) 2,400 mg PRN Q12HR PRN PO CONSTIPATION; Start 02/17/17 at 19:00 Lactulose 20 gm PRN Q12HR PRN PO CONSTIPATION; Start 02/17/17 at 19:00 Bisacodyl (Dulcolax Supp) 10 mg PRN DAILY PRN CO CONSTIPATION; Start 02/17/17 at 19:00 Heparin Sodium (Porcine) 5,000 unit Q12HR SQ ; Start 02/17/17 at 21:00 Insulin Aspart (Novolog) 0-9 UNITS TIDWMEALS SQ Last administered on 02/19/17 12:02; Start 02/17/17 at 19:30 Dextrose 12.5 gm PRN Q15MIN PRN IV SEE COMMENTS; Start 02/17/17 at 19:00 Insulin Aspart (Novolog) 0-5 UNITS TIDWMEALS SQ ; Start 02/18/17 at 08:00; Status UNV Dextrose 12.5 gm PRN Q15MIN PRN IV SEE COMMENTS; Start 02/17/17 at 19:15; Status UNV Alprazolam (Xanax) 1 mg PRN Q6HRS PRN PO ANXIETY / AGITATION Last administered on 02/19/17 21:11; Start 02/17/17 at 21:30 Amitriptyline HCl (Elavil) 50 mg PRN QHS PRN PO INSOMNIA Last administered on 22:22; Start 02/17/17 at 21:30 Albuterol/ Ipratropium (Duoneb) 3 ml RTQID NEB Last administered on 02/20/17 07:26; Start 02/17/17 at 21:30 Albuterol Sulfate (Ventolin Neb Soln) 2.5 mg 1X ONCE NEB Last administered on 02/18/17 23:54; Start 02/19/17 at 00:00; Stop 02/19/17 at 00:01; Status DC Vitals/I & O Vital Sign - Last 24 Hours 02/19/17 02/19/17 02/19/17 02/19/17 11:52 15:21 16:06 19:00 Temp 97.9 98.2 97.9 98.2 Pulse 86 82 Resp 20 20 B/P 170/84 166/71 Pulse Ox 95 94 O2 Delivery Nasal Cannula Nasal Cannula Nasal Cannula Nasal Cannula O2 Flow Rate 2.0 2.0 2.0 2.0 02/19/17 02/19/17 02/19/17 02/20/17 19:24 20:00 23:00 03:00 Temp 97.7 97.9 97.7 97.9 Pulse 85 90 Resp 18 18 B/P 161/75 170/83 Pulse Ox 94 96 98 O2 Delivery Nasal Cannula Nasal Cannula Nasal Cannula Nasal Cannula O2 Flow Rate 2.0 2.0 2.0 2.0 02/20/17 02/20/17 07:00 07:28 Temp 97.8 97.8 Pulse 77 Resp 18 B/P 172/85 Pulse Ox 95 98 O2 Delivery Nasal Cannula Nasal Cannula O2 Flow Rate 2.0 2.0 Intake and Output 302/19/17 02/20/17 15:00 23:00 07:00 Intake Total 480 ml 240 ml 360 ml Output Total 1065 ml 150 ml 750 ml Balance -585 ml 90 ml -390 ml WANDY JIMENEZ MD Feb 20, 2017 10:47
[2017-02-20 11:00] VITALS: BP 170/80
[2017-02-20] MEDS ORDERED: hydrALAZINE 20 MG/ML VIAL. IVP PRN (11:30)
--- NOTE | 2017-02-20 11:57 | PDOC ---
Renal-Progress Notes Subjective Notes Notes NONE History of Present Illness Hx of present illness NO CHANGE Vitals Vitals Vital Signs Date Time Temp Pulse Resp B/P Pulse Ox O2 Delivery O2 Flow Rate FiO2 02/20/17 11:35 98 02/20/17 11:34 Room Air 02/20/17 11:00 97.8 78 18 170/80 2.0 97.8 Weight Weight [ ] I.O. Intake and Output Intake and Output 02/20/17 07:00 Intake Total 1080 ml Output Total 1965 ml Balance -885 ml Intake Oral 1080 ml Output Urine Total 1965 ml # Voids 2 # Bowel Movements 1 Labs Labs Laboratory Tests Test 02/19/17 15:58 02/19/17 21:15 02/20/17 04:05 02/20/17 07:42 Glucose (Fingerstick) 129mg/dL (70-99) 220mg/dL (70-99) 137mg/dL (70-99) Hemoglobin 10.2g/dL (13.0-17.5) Hematocrit 30.7% (39.0-53.0) Mean Corpuscular Hemoglobin Concent 33g/dL (31-37) Test 02/20/17 10:32 Glucose (Fingerstick) 214mg/dL (70-99) Review of Systems Constitutional: yes: no symptom reported Physical Exam General Appearance: no apparent distress Skin: warm Respiratory: bilateral CTA Heart: S1S2 Extremities: pulses present, atrophy Neurology: alert, oriented Assessment Assessment IMP CKD STAGE 4-STABLE CR AT ABOUT 4.0 ANEMIA HTN CHF COMPENSATED PLAN PT WILL CONT WITH RENAL F/U AT [facility] SUGGESTED A LOW SALT LOW PROTEIN DIET ADD NORVASC ALSO LOW DOSE MAURIZIO TEMPLETON MD Feb 20, 2017 11:57
[2017-02-20] MEDS: AMLODIPINE BESYLATE 5 MG TABLET PO SCH (12:05)
[2017-02-20] MEDS: FUROSEMIDE 40 MG TABLET PO SCH (12:05)
--- NOTE | 2017-02-20 13:12 | PDOC ---
PROGRESS NOTES Subjective Subjective Patient without cardiac complaints today. Was feeling ok and would like to go home today. Objective Objective Vital Signs Date Time Temp Pulse Resp B/P Pulse Ox O2 Delivery O2 Flow Rate FiO2 02/20/17 12:05 78 170/80 02/20/17 11:35 98 02/20/17 11:34 Room Air 02/20/17 11:00 97.8 18 2.0 97.8 Intake and Output 02/20/17 07:00 Intake Total 1080 ml Output Total 1965 ml Balance -885 ml Intake Oral 1080 ml Output Urine Total 1965 ml # Voids 2 # Bowel Movements 1 Physical Exam Heart: Other (Unchanged since prior cardiac exam) Extremities: No edema General: Alert, Cooperative, No acute distress Lungs: Clear to auscultation Assessment Assessment Problems Medical Problems: (1) CKD (chronic kidney disease) Status: Acute (2) Hypoxia Status: Acute (3) Pulmonary edema Status: Acute (4) Renal failure Status: Acute Plan Plan of Care Patient seems to be stable cardiac mayes. May go home. Comment Review of Relevant I have reviewed the following items diana (where applicable) has been applied. Labs Laboratory Tests Test 02/18/17 16:34 02/18/17 20:50 02/19/17 04:15 02/19/17 07:47 Glucose (Fingerstick) 158mg/dL (70-99) 191mg/dL (70-99) 133mg/dL (70-99) Sodium Level 139mmol/L (136-145) Potassium Level 3.6mmol/L (3.5-5.1) Chloride Level 102mmol/L (98-107) Carbon Dioxide Level 23mmol/L (21-32) Anion Gap 14 (6-14) Blood Urea Nitrogen 47mg/dL (8-26) Creatinine 4.0mg/dL (0.7-1.3) Estimated GFR (Cockcroft-Gault) 14.9 Glucose Level 159mg/dL (70-99) Calcium Level 9.3mg/dL (8.5-10.1) Test 02/19/17 10:17 02/19/17 15:58 02/19/17 21:15 02/20/17 04:05 Glucose (Fingerstick) 200mg/dL (70-99) 129mg/dL (70-99) 220mg/dL (70-99) Hemoglobin 10.2g/dL (13.0-17.5) Hematocrit 30.7% (39.0-53.0) Mean Corpuscular Hemoglobin Concent 33g/dL (31-37) Test 02/20/17 07:42 02/20/17 10:32 Glucose (Fingerstick) 137mg/dL (70-99) 214mg/dL (70-99) Laboratory Tests Test 02/19/17 15:58 02/19/17 21:15 02/20/17 04:05 02/20/17 07:42 Glucose (Fingerstick) 129mg/dL (70-99) 220mg/dL (70-99) 137mg/dL (70-99) Hemoglobin 10.2g/dL (13.0-17.5) Hematocrit 30.7% (39.0-53.0) Mean Corpuscular Hemoglobin Concent 33g/dL (31-37) Test 02/20/17 10:32 Glucose (Fingerstick) 214mg/dL (70-99) Medications Current Medications Albuterol/ Ipratropium (Duoneb) 3 ml STK-MED ONCE .ROUTE ; Start 02/17/17 at 16: 09; Stop 02/17/17 at 16:10; Status DC Furosemide (Lasix) 80 mg 1X ONCE IVP Last administered on 02/17/17t 17:51; Start 02/17/17 at 17:30; Stop 02/17/17 at 17:31; Status DC Ondansetron HCl (Zofran) 4 mg PRN Q6HRS PRN IV NAUSEA/VOMITING; Start 02/17/17 at 19:00 Prochlorperazine Edisylate (Compazine) 10 mg PRN Q6HRS PRN IV NAUSEA/VOMITING; Start 02/17/17 at 19:00 Prochlorperazine (Compazine) 25 mg PRN Q12HR PRN MT NAUSEA/VOMITING; Start at 19:00 Al Hydroxide/Mg Hydroxide (Mylanta Plus Xs) 30 ml PRN Q3HRS PRN PO HEARTBURN / GAS; Start 02/17/17 at 19:00 Calcium Carbonate/ Glycine (Tums) 500 mg PRN Q3HRS PRN PO UPSET STOMACH; Start 02/17/17 at 19:00 Zolpidem Tartrate (Ambien) 5 mg PRN QHS PRN PO INSOMNIA, MAY REPEAT IN 1HR Last administered on 02/19/17 21:11; Start 02/17/17 at 19:00 Oxycodone HCl (Roxicodone) 5 mg PRN Q3HRS PRN PO BREAKTHROUGH PAIN; Start 02/17 at 19:00 Morphine Sulfate 1 mg PRN Q1HR PRN IV PAIN; Start 02/17/17 at 19:00 Acetaminophen (Tylenol) 650 mg PRN Q6HRS PRN PO MILD PAIN / TEMP; Start at 19:00 Senna/Docusate Sodium (Senna Plus) 1 tab BID PO Last administered on 02/20/17 07:56; Start 02/17/17 at 21:00 Docusate Sodium (Colace) 100 mg BID PO Last administered on 02/20/17 07:57; Start 02/17/17 at 21:00 Magnesium Hydroxide (Milk Of Magnesia) 2,400 mg PRN Q12HR PRN PO CONSTIPATION; Start 02/17/17 at 19:00 Lactulose 20 gm PRN Q12HR PRN PO CONSTIPATION; Start 02/17/17 at 19:00 Bisacodyl (Dulcolax Supp) 10 mg PRN DAILY PRN MT CONSTIPATION; Start 02/17/17 at 19:00 Heparin Sodium (Porcine) 5,000 unit Q12HR SQ ; Start 02/17/17 at 21:00 Insulin Aspart (Novolog) 0-9 UNITS TIDWMEALS SQ Last administered on 02/20/17 12:08; Start 02/17/17 at 19:30 Dextrose 12.5 gm PRN Q15MIN PRN IV SEE COMMENTS; Start 02/17/17 at 19:00 Insulin Aspart (Novolog) 0-5 UNITS TIDWMEALS SQ ; Start 02/18/17 at 08:00; Status UNV Dextrose 12.5 gm PRN Q15MIN PRN IV SEE COMMENTS; Start 02/17/17 at 19:15; Status UNV Alprazolam (Xanax) 1 mg PRN Q6HRS PRN PO ANXIETY / AGITATION Last administered on 02/19/17 21:11; Start 02/17/17 at 21:30 Amitriptyline HCl (Elavil) 50 mg PRN QHS PRN PO INSOMNIA Last administered on 22:22; Start 02/17/17 at 21:30 Albuterol/ Ipratropium (Duoneb) 3 ml RTQID NEB Last administered on 02/20/17 11:32; Start 02/17/17 at 21:30 Albuterol Sulfate (Ventolin Neb Soln) 2.5 mg 1X ONCE NEB Last administered on 02/18/17 23:54; Start 02/19/17 at 00:00; Stop 02/19/17 at 00:01; Status DC Hydralazine HCl (Apresoline) 10 mg PRN Q4HRS PRN IVP for SBP > 170; Start 02/20 at 11:30 Furosemide (Lasix) 40 mg DAILY PO Last administered on 02/20/17 12:05; Start 02/20/17 at 12:00 Amlodipine Besylate (Norvasc) 5 mg DAILY PO Last administered on 02/20/17 12: 05; Start 02/20/17 at 12:00 Vitals/I & O Vital Sign - Last 24 Hours 02/19/17 02/19/17 02/19/17 02/19/17 15:21 16:06 19:00 19:24 Temp 97.9 98.2 97.9 98.2 Pulse 86 82 Resp 20 20 B/P 170/84 166/71 Pulse Ox 95 94 94 O2 Delivery Nasal Cannula Nasal Cannula Nasal Cannula Nasal Cannula O2 Flow Rate 2.0 2.0 2.0 2.0 02/19/17 02/19/17 02/20/17 02/20/17 20:00 23:00 03:00 07:00 Temp 97.7 97.9 97.8 97.7 97.9 97.8 Pulse 85 90 77 Resp 18 18 18 B/P 161/75 170/83 172/85 Pulse Ox 96 98 95 O2 Delivery Nasal Cannula Nasal Cannula Nasal Cannula Nasal Cannula O2 Flow Rate 2.0 2.0 2.0 2.0 02/20/17 02/20/17 02/20/17 02/20/17 07:28 08:00 11:00 11:34 Temp 97.8 97.8 Pulse 78 Resp 18 B/P 170/80 Pulse Ox 98 94 O2 Delivery Nasal Cannula Nasal Cannula Nasal Cannula Room Air O2 Flow Rate 2.0 2.0 2.0 02/20/17 02/20/17 11:35 12:05 Pulse 78 B/P 170/80 Pulse Ox 98 Intake and Output 02/19/17 02/19/17 02/20/17 15:00 23:00 07:00 Intake Total 480 ml 240 ml 360 ml Output Total 1065 ml 150 ml 750 ml Balance -585 ml 90 ml -390 ml NEVILLE REEVES MD Feb 20, 2017 13:12
[2017-02-20 14:57] VITALS: BP 154/73
[2017-02-20] MEDS: ALPRAZOLAM 1 MG TABLET PO PRN (18:34)
--- NOTE | 2017-02-20 18:51 | CARD ---
APPROVED REPORT EXAM: Two-dimensional and M-mode echocardiogram with Doppler and color Doppler. Other Information Quality : Fair INDICATION Dyspnea LV Function:Systolic 2D DIMENSIONS Left Atrium(2D)4.3 (1.6-4.0cm)IVSd1.3 (0.7-1.1cm) Aortic Root(2D)2.9 (2.0-3.7cm)LVDd4.9 (3.9-5.9cm) LVOT Diameter2.3 (1.8-2.4cm)PWd1.3 (0.7-1.1cm) LVDs4.1 (2.5-4.0cm)FS (%) 15.4 % SV35.8 mlLVEF(%)35.0 (>50%) Mitral Valve MV E [id number]/sMV DECEL [id number] MV A Itqsxqjv32.9cm/sE/A Ratio1.8 TDI Medial E' P. V5.28cm/sE/Medial E'28.1 LEFT VENTRICLE The left ventricle is normal size. There is mild concentric left ventricular hypertrophy. The Ejectio n Fraction is 30-35%. There is global hypokinesis of the left ventricle. There is moderate hypokinesi s in the anteroseptal wall. The overall global left ventricular ejection fraction was estimated to be 35% Transmitral Doppler flow pattern is restrictive diastolic dysfunction. RIGHT VENTRICLE The right ventricle is normal size. The right ventricular systolic function is normal. ATRIA The left atrium is mildly dilated. The right atrium size is normal. The interatrial septum is intact with no evidence for an atrial septal defect or patent foramen ovale as noted on 2-D or Doppler imagi ng. AORTIC VALVE The aortic valve is calcified but opens well. Doppler and Color Flow revealed no significant aortic r egurgitation. There is no significant aortic valvular stenosis. MITRAL VALVE The mitral valve is calcified but opens well. There is no evidence of mitral valve prolapse. There is no mitral valve stenosis. Doppler and Color-flow revealed mild mitral regurgitation. TRICUSPID VALVE The tricuspid valve is normal in structure Doppler and Color Flow revealed trace tricuspid regurgitat ion. There is no pulmonary hypertension. There is no tricuspid valve stenosis. PULMONIC VALVE The pulmonary valve is normal in structure and function. Doppler and Color Flow revealed no pulmonic valvular regurgitation. There is no pulmonic valvular stenosis. GREAT VESSELS The aortic root is normal in size. The ascending aorta is not well seen. The IVC is normal in size an d collapses >50% with inspiration. PERICARDIAL EFFUSION There is a small loculated anterior pericardial effusion. Critical Notification Critical Value: No <Conclusion> There is mild concentric left ventricular hypertrophy. There is global hypokinesis of the left ventricle. There is moderate hypokinesis in the anteroseptal wall. The overall global left ventricular ejection fraction was estimated to be 35% Transmitral Doppler flow pattern is restrictive diastolic dysfunction. The left atrium is mildly dilated. The right atrium size is normal. The aortic valve is calcified but opens well. Doppler and Color-flow revealed mild mitral regurgitation. The mitral valve is calcified but opens well. Doppler and Color Flow revealed trace tricuspid regurgitation. There is no pulmonary hypertension. The pulmonary valve is normal in structure and function. There is a small loculated anterior pericardial effusion.
[2017-02-20 19:00] VITALS: BP 152/65
[2017-02-20] MEDS ORDERED: ALPRAZOLAM 1 MG TABLET ONE (20:10)
[2017-02-20] MEDS: ZOLPIDEM 5 MG TABLET. PO PRN (20:40)
[2017-02-20] MEDS: DOCUSATE SODIUM 100 MG CAPSULE. PO SCH (20:40)
[2017-02-20 23:00] VITALS: BP 154/74
[2017-02-21 03:00] VITALS: BP 161/79
[2017-02-21 05:42] LABS: CALCIUM 8.9 mg/dL (8.5-10.1); CREATININE 3.7 mg/dL (0.7-1.3); GFR 16.3; POTASSIUM 3.7 mmol/L (3.5-5.1)
[2017-02-21] MEDS: IPRATRPIUM/ALBUTEROL 0.5/2.5MG 3 ML NEBU. NEB SCH ×2 (07:19→11:24)
--- NOTE | 2017-02-21 07:47 | PDOC ---
PROGRESS NOTES Chief Complaint Chief Complaint 1. HTN not controlled. 2. SHALOM on CKD, unknown stage 3. Overweight with mild PCM 4. AOCD 5. COPD, DM, HTN, - chronic stable Plan Metoprolol, Norvasc and Lasix, ECHO results noted, started on Metoprolol, needs cardiology and nephrology follow up at [facility], labs reviewed. SSI History of Present Illness History of Present Illness no acute events no sob no chest pain Vitals Vitals Vital Signs Date Time Temp Pulse Resp B/P Pulse Ox O2 Delivery O2 Flow Rate FiO2 02/21/17 03:00 97.7 86 18 161/79 95 Nasal Cannula 2.0 97.7 Physical Exam General: Alert, Cooperative, No acute distress Heart: Normal S1, Normal S2, Other Lungs: Clear Extremities: No edema Skin: No rashes, No breakdown, No significant lesion Labs LABS Laboratory Tests Test 02/20/17 10:32 02/20/17 16:33 02/20/17 20:40 02/21/17 04:45 Glucose (Fingerstick) 214mg/dL (70-99) 149mg/dL (70-99) 279mg/dL (70-99) Sodium Level 140mmol/L (136-145) Potassium Level 3.7mmol/L (3.5-5.1) Chloride Level 102mmol/L (98-107) Carbon Dioxide Level 25mmol/L (21-32) Anion Gap 13 (6-14) Blood Urea Nitrogen 47mg/dL (8-26) Creatinine 3.7mg/dL (0.7-1.3) Estimated GFR (Cockcroft-Gault) 16.3 Glucose Level 150mg/dL (70-99) Calcium Level 8.9mg/dL (8.5-10.1) Assessment and Plan Assessmemt and Plan Problems Medical Problems: (1) CKD (chronic kidney disease) Status: Acute (2) Hypoxia Status: Acute (3) Pulmonary edema Status: Acute (4) Renal failure Status: Acute Problems: Comment Review of Relevant I have reviewed the following items diana (where applicable) has been applied. Labs Laboratory Tests Test 02/19/17 10:17 02/19/17 15:58 02/19/17 21:15 02/20/17 04:05 Glucose (Fingerstick) 200mg/dL (70-99) 129mg/dL (70-99) 220mg/dL (70-99) Hemoglobin 10.2g/dL (13.0-17.5) Hematocrit 30.7% (39.0-53.0) Mean Corpuscular Hemoglobin Concent 33g/dL (31-37) Test 02/20/17 07:42 02/20/17 10:32 02/20/17 16:33 02/20/17 20:40 Glucose (Fingerstick) 137mg/dL (70-99) 214mg/dL (70-99) 149mg/dL (70-99) 279mg/dL (70-99) Test 02/21/17 04:45 Sodium Level 140mmol/L (136-145) Potassium Level 3.7mmol/L (3.5-5.1) Chloride Level 102mmol/L (98-107) Carbon Dioxide Level 25mmol/L (21-32) Anion Gap 13 (6-14) Blood Urea Nitrogen 47mg/dL (8-26) Creatinine 3.7mg/dL (0.7-1.3) Estimated GFR (Cockcroft-Gault) 16.3 Glucose Level 150mg/dL (70-99) Calcium Level 8.9mg/dL (8.5-10.1) Laboratory Tests Test 02/20/17 10:32 02/20/17 16:33 02/20/17 20:40 02/21/17 04:45 Glucose (Fingerstick) 214mg/dL (70-99) 149mg/dL (70-99) 279mg/dL (70-99) Sodium Level 140mmol/L (136-145) Potassium Level 3.7mmol/L (3.5-5.1) Chloride Level 102mmol/L (98-107) Carbon Dioxide Level 25mmol/L (21-32) Anion Gap 13 (6-14) Blood Urea Nitrogen 47mg/dL (8-26) Creatinine 3.7mg/dL (0.7-1.3) Estimated GFR (Cockcroft-Gault) 16.3 Glucose Level 150mg/dL (70-99) Calcium Level 8.9mg/dL (8.5-10.1) Medications Current Medications Albuterol/ Ipratropium (Duoneb) 3 ml STK-MED ONCE .ROUTE ; Start 02/17/17 at 16: 09; Stop 02/17/17 at 16:10; Status DC Furosemide (Lasix) 80 mg 1X ONCE IVP Last administered on 02/17/17 17:51; Start 02/17/17 at 17:30; Stop 02/17/17 at 17:31; Status DC Ondansetron HCl (Zofran) 4 mg PRN Q6HRS PRN IV NAUSEA/VOMITING; Start 02/17/17 at 19:00 Prochlorperazine Edisylate (Compazine) 10 mg PRN Q6HRS PRN IV NAUSEA/VOMITING; Start 02/17/17 at 19:00 Prochlorperazine (Compazine) 25 mg PRN Q12HR PRN IN NAUSEA/VOMITING; Start at 19:00 Al Hydroxide/Mg Hydroxide (Mylanta Plus Xs) 30 ml PRN Q3HRS PRN PO HEARTBURN / GAS; Start 02/17/17 at 19:00 Calcium Carbonate/ Glycine (Tums) 500 mg PRN Q3HRS PRN PO UPSET STOMACH; Start 02/17/17 at 19:00 Zolpidem Tartrate (Ambien) 5 mg PRN QHS PRN PO INSOMNIA, MAY REPEAT IN 1HR Last administered on 02/20/17 20:40; Start 02/17/17 at 19:00 Oxycodone HCl (Roxicodone) 5 mg PRN Q3HRS PRN PO BREAKTHROUGH PAIN; Start 02/17 at 19:00 Morphine Sulfate 1 mg PRN Q1HR PRN IV PAIN; Start 02/17/17 at 19:00 Acetaminophen (Tylenol) 650 mg PRN Q6HRS PRN PO MILD PAIN / TEMP; Start at 19:00 Senna/Docusate Sodium (Senna Plus) 1 tab BID PO Last administered on 02/20/17 20:40; Start 02/17/17 at 21:00 Docusate Sodium (Colace) 100 mg BID PO Last administered on 02/20/17 07:57; Start 02/17/17 at 21:00; Stop 02/20/17 at 13:50; Status DC Magnesium Hydroxide (Milk Of Magnesia) 2,400 mg PRN Q12HR PRN PO CONSTIPATION; Start 02/17/17 at 19:00 Lactulose 20 gm PRN Q12HR PRN PO CONSTIPATION; Start 02/17/17 at 19:00 Bisacodyl (Dulcolax Supp) 10 mg PRN DAILY PRN IN CONSTIPATION; Start 02/17/17 at 19:00 Heparin Sodium (Porcine) 5,000 unit Q12HR SQ ; Start 02/17/17 at 21:00 Insulin Aspart (Novolog) 0-9 UNITS TIDWMEALS SQ Last administered on 02/20/17 12:08; Start 02/17/17 at 19:30 Dextrose 12.5 gm PRN Q15MIN PRN IV SEE COMMENTS; Start 02/17/17 at 19:00 Insulin Aspart (Novolog) 0-5 UNITS TIDWMEALS SQ ; Start 02/18/17 at 08:00; Status UNV Dextrose 12.5 gm PRN Q15MIN PRN IV SEE COMMENTS; Start 02/17/17 at 19:15; Status UNV Alprazolam (Xanax) 1 mg PRN Q6HRS PRN PO ANXIETY / AGITATION Last administered on 02/20/17 18:34; Start 02/17/17 at 21:30 Amitriptyline HCl (Elavil) 50 mg PRN QHS PRN PO INSOMNIA Last administered on 22:22; Start 02/17/17 at 21:30 Albuterol/ Ipratropium (Duoneb) 3 ml RTQID NEB Last administered on 02/21/17 07:19; Start 02/17/17 at 21:30 Albuterol Sulfate (Ventolin Neb Soln) 2.5 mg 1X ONCE NEB Last administered on 02/18/17 23:54; Start 02/19/17 at 00:00; Stop 02/19/17 at 00:01; Status DC Hydralazine HCl (Apresoline) 10 mg PRN Q4HRS PRN IVP for SBP > 170; Start 02/20 at 11:30 Furosemide (Lasix) 40 mg DAILY PO Last administered on 02/20/17 12:05; Start 02/20/17 at 12:00 Amlodipine Besylate (Norvasc) 5 mg DAILY PO Last administered on 02/20/17 12: 05; Start 02/20/17 at 12:00 Docusate Sodium (Colace) 100 mg BID PO Last administered on 02/20/17 20:40; Start 02/20/17 at 21:00 Alprazolam (Xanax) 1 mg STK-MED ONCE .ROUTE Last administered on 02/20/17 20: 40; Start 02/20/17 at 20:10; Stop 02/20/17 at 20:11; Status DC Metoprolol Tartrate (Lopressor) 25 mg BID PO ; Start 02/21/17 at 09:00; Status UNV Vitals/I & O Vital Sign - Last 24 Hours 02/20/17 02/20/17 02/20/17 02/20/17 08:00 11:00 11:34 11:35 Temp 97.8 97.8 Pulse 78 Resp 18 B/P 170/80 Pulse Ox 94 98 O2 Delivery Nasal Cannula Nasal Cannula Room Air O2 Flow Rate 2.0 2.0 02/20/17 02/20/17 02/20/17 02/20/17 12:05 14:57 15:40 19:00 Temp 97.8 97.9 97.8 97.9 Pulse 78 90 99 Resp 18 18 B/P 170/80 154/73 152/65 Pulse Ox 94 99 O2 Delivery Nasal Cannula Room Air Nasal Cannula O2 Flow Rate 2.0 2.0 02/20/17 02/20/17 02/20/17 02/21/17 19:12 20:20 23:00 03:00 Temp 97.5 97.7 97.5 97.7 Pulse 93 86 Resp 18 B/P 154/74 161/79 Pulse Ox 95 95 O2 Delivery Room Air Nasal Cannula Nasal Cannula Nasal Cannula O2 Flow Rate 2.0 2.0 2.0 Intake and Output 02/20/17 02/20/17 02/21/17 15:00 23:00 07:00 Intake Total 480 ml 840 ml 480 ml Output Total 200 ml 400 ml Balance 280 ml 840 ml 80 ml WANDY JIMENEZ MD Feb 21, 2017 07:47
[2017-02-21 07:50] VITALS: BP 155/77
[2017-02-21] MEDS: INSULIN ASPART 300 UNITS/3 ML INSULN.PEN SQ SCH (08:00)
--- NOTE | 2017-02-21 08:11 | PDOC ---
PROGRESS NOTES Subjective Subjective Pt seen and evaluated this am. No acute events overnight. Denies chest pain, shortness of breath or palpitation. Objective Objective Vital Signs Date Time Temp Pulse Resp B/P Pulse Ox O2 Delivery O2 Flow Rate FiO2 02/21/17 03:00 97.7 86 18 161/79 95 Nasal Cannula 2.0 97.7 Intake and Output 02/21/17 07:00 Intake Total 1800 ml Output Total 600 ml Balance 1200 ml Intake Oral 1800 ml Output Urine Total 600 ml # Voids 5 # Bowel Movements 1 Physical Exam Physical Exam No changes in cardiac exam Assessment Assessment Problems Medical Problems: (1) CKD (chronic kidney disease) Status: Acute (2) Hypoxia Status: Acute (3) Pulmonary edema Status: Acute (4) Renal failure Status: Acute Plan Plan of Care Hemodynamically stable from cardiac standpoint Agree with current plan F/u as outpatient in 2wks Comment Review of Relevant I have reviewed the following items diana (where applicable) has been applied. Labs Laboratory Tests Test 02/19/17 10:17 02/19/17 15:58 02/19/17 21:15 02/20/17 04:05 Glucose (Fingerstick) 200mg/dL (70-99) 129mg/dL (70-99) 220mg/dL (70-99) Hemoglobin 10.2g/dL (13.0-17.5) Hematocrit 30.7% (39.0-53.0) Mean Corpuscular Hemoglobin Concent 33g/dL (31-37) Test 02/20/17 07:42 02/20/17 10:32 02/20/17 16:33 02/20/17 20:40 Glucose (Fingerstick) 137mg/dL (70-99) 214mg/dL (70-99) 149mg/dL (70-99) 279mg/dL (70-99) Test 02/21/17 04:45 Sodium Level 140mmol/L (136-145) Potassium Level 3.7mmol/L (3.5-5.1) Chloride Level 102mmol/L (98-107) Carbon Dioxide Level 25mmol/L (21-32) Anion Gap 13 (6-14) Blood Urea Nitrogen 47mg/dL (8-26) Creatinine 3.7mg/dL (0.7-1.3) Estimated GFR (Cockcroft-Gault) 16.3 Glucose Level 150mg/dL (70-99) Calcium Level 8.9mg/dL (8.5-10.1) Laboratory Tests Test 02/20/17 10:32 02/20/17 16:33 02/20/17 20:40 02/21/17 04:45 Glucose (Fingerstick) 214mg/dL (70-99) 149mg/dL (70-99) 279mg/dL (70-99) Sodium Level 140mmol/L (136-145) Potassium Level 3.7mmol/L (3.5-5.1) Chloride Level 102mmol/L (98-107) Carbon Dioxide Level 25mmol/L (21-32) Anion Gap 13 (6-14) Blood Urea Nitrogen 47mg/dL (8-26) Creatinine 3.7mg/dL (0.7-1.3) Estimated GFR (Cockcroft-Gault) 16.3 Glucose Level 150mg/dL (70-99) Calcium Level 8.9mg/dL (8.5-10.1) Medications Current Medications Albuterol/ Ipratropium (Duoneb) 3 ml STK-MED ONCE .ROUTE ; Start 02/17/17 at 16: 09; Stop 02/17/17 at 16:10; Status DC Furosemide (Lasix) 80 mg 1X ONCE IVP Last administered on 02/17/17t 17:51; Start 02/17/17 at 17:30; Stop 02/17/17 at 17:31; Status DC Ondansetron HCl (Zofran) 4 mg PRN Q6HRS PRN IV NAUSEA/VOMITING; Start 02/17/17 at 19:00 Prochlorperazine Edisylate (Compazine) 10 mg PRN Q6HRS PRN IV NAUSEA/VOMITING; Start 02/17/17 at 19:00 Prochlorperazine (Compazine) 25 mg PRN Q12HR PRN IN NAUSEA/VOMITING; Start at 19:00 Al Hydroxide/Mg Hydroxide (Mylanta Plus Xs) 30 ml PRN Q3HRS PRN PO HEARTBURN / GAS; Start 02/17/17 at 19:00 Calcium Carbonate/ Glycine (Tums) 500 mg PRN Q3HRS PRN PO UPSET STOMACH; Start 02/17/17 at 19:00 Zolpidem Tartrate (Ambien) 5 mg PRN QHS PRN PO INSOMNIA, MAY REPEAT IN 1HR Last administered on 02/20/17 20:40; Start 02/17/17 at 19:00 Oxycodone HCl (Roxicodone) 5 mg PRN Q3HRS PRN PO BREAKTHROUGH PAIN; Start 02/17 at 19:00 Morphine Sulfate 1 mg PRN Q1HR PRN IV PAIN; Start 02/17/17 at 19:00 Acetaminophen (Tylenol) 650 mg PRN Q6HRS PRN PO MILD PAIN / TEMP; Start at 19:00 Senna/Docusate Sodium (Senna Plus) 1 tab BID PO Last administered on 02/20/17 20:40; Start 02/17/17 at 21:00 Docusate Sodium (Colace) 100 mg BID PO Last administered on 02/20/17 07:57; Start 02/17/17 at 21:00; Stop 02/20/17 at 13:50; Status DC Magnesium Hydroxide (Milk Of Magnesia) 2,400 mg PRN Q12HR PRN PO CONSTIPATION; Start 02/17/17 at 19:00 Lactulose 20 gm PRN Q12HR PRN PO CONSTIPATION; Start 02/17/17 at 19:00 Bisacodyl (Dulcolax Supp) 10 mg PRN DAILY PRN IN CONSTIPATION; Start 02/17/17 at 19:00 Heparin Sodium (Porcine) 5,000 unit Q12HR SQ ; Start 02/17/17 at 21:00 Insulin Aspart (Novolog) 0-9 UNITS TIDWMEALS SQ Last administered on 02/20/17 12:08; Start 02/17/17 at 19:30 Dextrose 12.5 gm PRN Q15MIN PRN IV SEE COMMENTS; Start 02/17/17 at 19:00 Insulin Aspart (Novolog) 0-5 UNITS TIDWMEALS SQ ; Start 02/18/17 at 08:00; Status UNV Dextrose 12.5 gm PRN Q15MIN PRN IV SEE COMMENTS; Start 02/17/17 at 19:15; Status UNV Alprazolam (Xanax) 1 mg PRN Q6HRS PRN PO ANXIETY / AGITATION Last administered on 02/20/17 18:34; Start 02/17/17 at 21:30 Amitriptyline HCl (Elavil) 50 mg PRN QHS PRN PO INSOMNIA Last administered on 22:22; Start 02/17/17 at 21:30 Albuterol/ Ipratropium (Duoneb) 3 ml RTQID NEB Last administered on 02/21/17 07:19; Start 02/17/17 at 21:30 Albuterol Sulfate (Ventolin Neb Soln) 2.5 mg 1X ONCE NEB Last administered on 02/18/17 23:54; Start 02/19/17 at 00:00; Stop 02/19/17 at 00:01; Status DC Hydralazine HCl (Apresoline) 10 mg PRN Q4HRS PRN IVP for SBP > 170; Start 02/20 at 11:30 Furosemide (Lasix) 40 mg DAILY PO Last administered on 02/20/17 12:05; Start 02/20/17 at 12:00 Amlodipine Besylate (Norvasc) 5 mg DAILY PO Last administered on 02/20/17 12: 05; Start 02/20/17 at 12:00 Docusate Sodium (Colace) 100 mg BID PO Last administered on 02/20/17 20:40; Start 02/20/17 at 21:00 Alprazolam (Xanax) 1 mg STK-MED ONCE .ROUTE Last administered on 02/20/17 20: 40; Start 02/20/17 at 20:10; Stop 02/20/17 at 20:11; Status DC Metoprolol Tartrate (Lopressor) 25 mg BID PO ; Start 02/21/17 at 09:00 Vitals/I & O Vital Sign - Last 24 Hours 02/20/17 02/20/17 02/20/17 02/20/17 11:00 11:34 11:35 12:05 Temp 97.8 97.8 Pulse 78 78 Resp 18 B/P 170/80 170/80 Pulse Ox 94 98 O2 Delivery Nasal Cannula Room Air O2 Flow Rate 2.0 02/20/17 02/20/17 02/20/17 02/20/17 14:57 15:40 19:00 19:12 Temp 97.8 97.9 97.8 97.9 Pulse 90 99 Resp 18 18 B/P 154/73 152/65 Pulse Ox 94 99 O2 Delivery Nasal Cannula Room Air Nasal Cannula Room Air O2 Flow Rate 2.0 2.0 02/20/17 02/20/17 02/21/17 20:20 23:00 03:00 Temp 97.5 97.7 97.5 97.7 Pulse 93 86 Resp 18 18 B/P 154/74 161/79 Pulse Ox 95 95 O2 Delivery Nasal Cannula Nasal Cannula Nasal Cannula O2 Flow Rate 2.0 2.0 2.0 Intake and Output 02/20/17 02/20/17 02/21/17 15:00 23:00 07:00 Intake Total 480 ml 840 ml 480 ml Output Total 200 ml 400 ml Balance 280 ml 840 ml 80 ml NEVILLE REEVES MD Feb 21, 2017 08:11
[2017-02-21] MEDS ORDERED: METOPROLOL TART IMMED RELEASE 25 MG TABLET PO SCH (09:00)
[2017-02-21] MEDS: SENNOSIDES/DOCUSATE 8.6/50MG TABLET. PO SCH (09:00)
[2017-02-21] MEDS: DOCUSATE SODIUM 100 MG CAPSULE. PO SCH (09:00)
[2017-02-21] MEDS: FUROSEMIDE 40 MG TABLET PO SCH (09:14)
[2017-02-21] MEDS: AMLODIPINE BESYLATE 5 MG TABLET PO SCH (09:14)
[2017-02-21] MEDS: HEPARIN PF for SUB-Q USE 5,000 UNIT/0.5 ML VIAL. SQ SCH (09:21)
[2017-02-21] MEDS ORDERED: POTA10CA PO (10:19)
[2017-02-21] MEDS ORDERED: AMLO5TAB2 PO (10:19)
[2017-02-21] MEDS ORDERED: FURO40TA4 PO (10:19)
[2017-02-21] MEDS ORDERED: METO25TA4 PO (10:19)
--- NOTE | 2017-02-21 11:22 | PDOC ---
Renal-Progress Notes Subjective Notes Notes FEELS WELL History of Present Illness Hx of present illness BETTER Vitals Vitals Vital Signs Date Time Temp Pulse Resp B/P Pulse Ox O2 Delivery O2 Flow Rate FiO2 02/21/17 09:44 Room Air 02/21/17 09:14 79 155/77 02/21/17 07:50 97.5 18 97.5 02/21/17 07:20 96 02/21/17 03:00 2.0 Weight Weight [ ] I.O. Intake and Output Intake and Output 02/21/17 07:00 Intake Total 1800 ml Output Total 600 ml Balance 1200 ml Intake Oral 1800 ml Output Urine Total 600 ml # Voids 5 # Bowel Movements 1 Labs Labs Laboratory Tests Test 02/20/17 16:33 02/20/17 20:40 02/21/17 04:45 02/21/17 08:07 Glucose (Fingerstick) 149mg/dL (70-99) 279mg/dL (70-99) 134mg/dL (70-99) Sodium Level 140mmol/L (136-145) Potassium Level 3.7mmol/L (3.5-5.1) Chloride Level 102mmol/L (98-107) Carbon Dioxide Level 25mmol/L (21-32) Anion Gap 13 (6-14) Blood Urea Nitrogen 47mg/dL (8-26) Creatinine 3.7mg/dL (0.7-1.3) Estimated GFR (Cockcroft-Gault) 16.3 Glucose Level 150mg/dL (70-99) Calcium Level 8.9mg/dL (8.5-10.1) Review of Systems Constitutional: yes: no symptom reported Physical Exam General Appearance: no apparent distress Skin: warm Respiratory: bilateral CTA Heart: S1S2 Extremities: pulses present, atrophy Neurology: alert, oriented Assessment Assessment IMP CKD STAGE 4-STABLE CR AT 3.7 TODAY ANEMIA HTN-BETTER CHF COMPENSATED PLAN PT WILL CONT WITH RENAL F/U AT [facility] SUGGESTED A LOW SALT LOW PROTEIN DIET OK TO D/C FROM RENAL [facility] MAURIZIO WHITE MD Feb 21, 2017 11:22
[2017-02-21 11:23] VITALS: BP 152/83
[2017-02-21] MEDS ORDERED: ALPRAZOLAM 1 MG TABLET PO PRN (13:45)
[2017-02-21] MEDS ORDERED: AMITRIPTYLINE HCL 50 MG TABLET PO PRN (13:45)
== END 2017-02-21 13:30 | disposition home or self-care (01) | DRG 190 ==
LOC: ER 15:26 → 5 NORTH 17:13
PROVIDERS: ADMIT Internal Medicine; ATTEND Internal Medicine
DX: J44.1 Chronic obstructive pulmonary disease with (acute) exacerbation (principal); N17.0 Acute kidney failure with tubular necrosis; E44.1 Mild protein-calorie malnutrition; I13.0 Hypertensive heart and chronic kidney disease with heart failure and stage 1 through stage 4 chronic kidney disease, or unspecified chronic kidney disease; N18.4 Chronic kidney disease, stage 4 (severe); I50.32 Chronic diastolic (congestive) heart failure; D63.8 Anemia in other chronic diseases classified elsewhere; E11.21 Type 2 diabetes mellitus with diabetic nephropathy; E11.22 Type 2 diabetes mellitus with diabetic chronic kidney disease; E66.3 Overweight; J45.909 Unspecified asthma, uncomplicated; Z51.5 Encounter for palliative care; Z85.850 Personal history of malignant neoplasm of thyroid; Z86.73 Personal history of transient ischemic attack (TIA), and cerebral infarction without residual deficits
CPT/HCPCS: 36415; 51702; 71010; 76770; 80048; 80053; 82947; 83735; 83880; 84100; 84156; 84484; 85014; 85018; 85027; 85610; 87804; 93005; 93306; 94250; 94640; 94760; 96374; J1815; J1940; J7620; 97110; 97116; 97530; 99285-25

== ENCOUNTER 2017-04-22 00:39 | Inpatient (IN) | payer MEDICARE ==
[~2017-04-22] VITALS: Ht 188 cm; Wt 101.2 kg
[2017-04-22] VITALS (20 sets, daily range): BP systolic 86–162; BP diastolic 35–73
[~2017-04-22 00:39] MED LIST: ALPR0.5T PO; AMLO5TAB2 PO; ASPI1CPM PO; ATROVENT HFA12.9 GM IH; FOLI1TAB16 PO; FURO40TA4 PO; INSU100I17 SQ; LEVO200T5 PO; LOSA1TAB16 PO; METO25TA4 PO; NORT75CA PO; NPH,100V4 SQ; POTASSIUM CHLO10 MEQ PO; SERT50TA PO; VITA1CAP PO
[2017-04-22] MEDS ORDERED: IPRATRPIUM/ALBUTEROL 0.5/2.5MG 3 ML NEBU. ONE (00:49)
--- NOTE | 2017-04-22 00:58 | PHYS DOC ---
Past Medical History Past Medical History: Asthma, Cancer, COPD, CVA, Diabetes-Type II, Hypertension , Other Additional Past Medical Histor: THYROID CA Past Medical History End-stage renal disease on dialysis Past Surgical History: Other Additional Past Surgical Histo: THYROIDECTOMY,TUMOR REMOVED FROM BACK,SHOULDER Smoking: Cigarettes Alcohol Use: None Drug Use: None Adult General Chief Complaint Chief Complaint: DYSPNEA/RESPIRATOY DISTRESS HPI HPI Patient is a 71 year old male who presents with 1 day history of increased shortness of breath. Patient presents with severe respiratory distress that started earlier this evening he is a COPD patient questionable oxygen dependent who has end-stage renal disease and missed his dialysis last dialysis was one week ago. Patient normally gets all [facility] care at [facility] which is [facility] his specialist. Denies any fever or cough. MS picked up the patient and noted that he was hypoxic with a sat in the 80s with significant work of breathing. Patient was just admitted and dismissed from the hospital on April 15, 2017 and there was arrangements made for him to receive outpatient hemodialysis which did not occur. Review of Systems Review of Systems Constitutional: Denies fever or chills [] Eyes: Denies change in visual acuity, redness, or eye pain [] HENT: Denies nasal congestion or sore throat [] Respiratory: Denies cough or shortness of breath [] Cardiovascular: No additional information not addressed in HPI [] GI: Denies abdominal pain, nausea, vomiting, bloody stools or diarrhea [] : Denies dysuria or hematuria [] Musculoskeletal: Denies back pain or joint pain [] Integument: Denies rash or skin lesions [] Neurologic: Denies headache, focal weakness or sensory changes [] Endocrine: Denies polyuria or polydipsia [] Current Medications Current Medications Current Medications Medications (Trade) Dose Ordered Sig/Tejas Start Time Stop Time Status Last Admin Dose Admin Albuterol Sulfate (Ventolin Neb Soln) 10 mg 1X ONCE 04/22/17 01:15 04/22/17 01:16 DC 04/22/17 01:03 10 MG Albuterol/ Ipratropium (Duoneb) 3 ml STK-MED ONCE 04/22/17 00:49 04/22/17 00:50 DC Furosemide (Lasix) 100 mg 1X ONCE 04/22/17 01:30 04/22/17 01:31 DC 04/22/17 01:36 100 MG Allergies Allergies Allergies Coded Allergies Type Severity Reaction Last Updated Verified No Known Drug Allergies 02/17/17 No Physical Exam Physical Exam Constitutional: Well developed, well nourished, moderate acute distress, non- toxic appearance. [] HENT: Normocephalic, atraumatic, bilateral external ears normal, oropharynx moist, no oral exudates, nose normal. [] Eyes: PERRLA, EOMI, conjunctiva normal, no discharge. [] Neck: Normal range of motion, no tenderness, supple, no stridor. [] Cardiovascular:Heart tachycardic regular rhythm, no murmur [] Lungs & Thorax: Bilateral breath sounds crackles] increase work of breathing Abdomen: Bowel sounds normal, soft, no tenderness, no masses, no pulsatile masses. [] Skin: Warm, dry, no erythema, no rash. [] Back: No tenderness, no CVA tenderness. [] Extremities: No tenderness, no cyanosis, no clubbing, ROM intact, no edema. [] Neurologic: Alert and oriented X 3, normal motor function, normal sensory function, no focal deficits noted. [] Psychologic: Affect normal, judgement normal, mood normal. [] Current Patient Data Vital Signs Vital Signs Date Time Temp Pulse Resp B/P (MAP) Pulse Ox O2 Delivery O2 Flow Rate FiO2 04/22/17 01:30 96 28 143/63 (89) 100 BiPAP/CPAP 04/22/17 00:39 99.2 99.2 Lab Values Laboratory Tests Test 04/22/17 00:45 04/22/17 01:00 White Blood Count 11.3 x10^3/uL (4.0-11.0) H Red Blood Count 3.09 x10^6/uL (4.30-5.70) L Hemoglobin 8.9 g/dL (13.0-17.5) L Hematocrit 26.9 % (39.0-53.0) L Mean Corpuscular Volume 87 fL (79-100) Mean Corpuscular Hemoglobin 29 pg (25-35) Mean Corpuscular Hemoglobin Concent 33 g/dL (31-37) Red Cell Distribution Width 15.5 % (11.5-14.5) H Platelet Count 227 x10^3/uL (140-400) Neutrophils (%) (Auto) 78 % (31-73) H Lymphocytes (%) (Auto) 13 % (24-48) L Monocytes (%) (Auto) 8 % (0-9) Eosinophils (%) (Auto) 1 % (0-3) Basophils (%) (Auto) 1 % (0-3) Neutrophils # (Auto) 8.8 x10^3uL (1.8-7.7) H Lymphocytes # (Auto) 1.5 x10^3/uL (1.0-4.8) Monocytes # (Auto) 0.8 x10^3/uL (0.0-1.1) Eosinophils # (Auto) 0.1 x10^3/uL (0.0-0.7) Basophils # (Auto) 0.1 x10^3/uL (0.0-0.2) Sodium Level 139 mmol/L (136-145) Potassium Level 4.0 mmol/L (3.5-5.1) Chloride Level 101 mmol/L (98-107) Carbon Dioxide Level 25 mmol/L (21-32) Anion Gap 13 (6-14) 15 mmol/L (6-14) H Blood Urea Nitrogen 59 mg/dL (8-26) H Creatinine 5.1 mg/dL (0.7-1.3) H Estimated GFR (Cockcroft-Gault) 11.3 BUN/Creatinine Ratio 12 (6-20) Glucose Level 186 mg/dL (70-99) H 185 mg/dL (70-99) H Calcium Level 8.5 mg/dL (8.5-10.1) Total Bilirubin 0.2 mg/dL (0.2-1.0) Aspartate Amino Transferase (AST) 20 U/L (15-37) Alanine Aminotransferase (ALT) 22 U/L (16-63) Alkaline Phosphatase 96 U/L (46-116) Troponin I Quantitative < 0.017 ng/mL (0.000-0.055) Total Protein 6.5 g/dL (6.4-8.2) Albumin 3.2 g/dL (3.4-5.0) L Albumin/Globulin Ratio 1.0 (1.0-1.7) POC Hemoglobin 9.5 g/dL (14-18) L POC Hematocrit 28 % (37-52) L POC Sodium 136 mmol/L (135-145) POC Potassium 3.9 mmol/L (3.5-5.0) POC Chloride 103 mmol/L (98-110) POC Total CO2 23 mmol/L (23-32) POC Blood Urea Nitrogen 55 mg/dL (8-26) H POC Creatinine 5.0 mg/dL (0.5-1.4) H POC Ionized Calcium (Alfonso) 1.15 mmol/L (1.13-1.32) Laboratory Tests 04/22/17 00:45 Laboratory Tests 04/22/17 00:45 04/22/17 01:00 EKG EKG Atrial fibrillation with RVR rate of 134, no STEMI QTC 500 no peaked T waves my interpretation time of 0047 hours [] Radiology/Procedures Radiology/Procedures Chest x-ray pulmonary edema fluid overload [] Course & Med Decision Making Course & Med Decision Making Pertinent Labs and Imaging studies reviewed. (See chart for details) Patient was placed on BiPAP and supplemental oxygen on arrival. critical care time: 45 Minutes outside of separately billable procedures Include patient appears to be fluid overloaded. He was placed on BiPAP immediately upon arrival given breathing treatments. [] Time 18000 hours discussed with predatory animal trapper environmental services floor tech to set up for emergent dialysis Dr Thompson he recommends giving 100 mg of IV Lasix. Clinical exam findings, lab findings, and chest x-ray results were discussed. 0015 hospitalist paged; discussed case with Dr. Ge Rodriguez in detail regarding history physical labs x-ray and consultation with nephrology. 0 1:30 AM patient is much improved on BiPAP and emergent dialysis set up and patient will be transferred to the ICU. ABG looks favorable.. Marlys Disclaimer Dragon Disclaimer This electronic medical record was generated, in whole or in part, using a voice recognition dictation system. Departure Departure Impression: Primary Impression: Acute respiratory failure Additional Impression: End-stage renal disease needing dialysis Disposition: ADMITTED INPATIENT Condition: CRITICAL Referrals: NO PCP (PCP) Problem Qualifiers CALE COON MD April 22, 2017 00:58
[2017-04-22 01:07] LABS: POTASSIUM ISTAT 3.9 mmol/L (3.5-5.0)
[2017-04-22 01:14] LABS: BASO # 0.1 x10^3/uL (0.0-0.2); BASO % 1 % (0-3); EOS % 1 % (0-3); HEMATOCRIT 26.9 % (39.0-53.0); HEMOGLOBIN 8.9 g/dL (13.0-17.5); LYMPH # 1.5 x10^3/uL (1.0-4.8); LYMPH % 13 % (24-48); MEAN CORPUSCULAR HEMOGLOBIN 29 pg (25-35); MEAN CORPUSCULAR HGB CONC 33 g/dL (31-37); MEAN CORPUSCULAR VOLUME 87 fL (79-100); MONO % 8 % (0-9); NEUT % 78 % (31-73); PLATELET COUNT 227 x10^3/uL (140-400); RED BLOOD COUNT 3.09 x10^6/uL (4.30-5.70); RED CELL DISTRIBUTION WIDTH 15.5 % (11.5-14.5); WHITE BLOOD COUNT 11.3 x10^3/uL (4.0-11.0)
[2017-04-22] MEDS ORDERED: ALBUTEROL SULFATE 2.5 MG/3 ML NEBU. CONT NEB ONE (01:15)
[2017-04-22 01:17] LABS: CALCIUM 8.5 mg/dL (8.5-10.1); CREATININE 5.1 mg/dL (0.7-1.3); GFR 11.3
[2017-04-22 01:23] LABS: ALBUMIN 3.2 g/dL (3.4-5.0); TOTAL BILIRUBIN 0.2 mg/dL (0.2-1.0); TOTAL PROTEIN 6.5 g/dL (6.4-8.2)
[2017-04-22] MEDS ORDERED: FUROSEMIDE 100 MG/10 ML VIAL. IVP ONE (01:30)
[2017-04-22 01:40] LABS: FIO2 ABG 30; HCO3 ABG 22 mmol/L (21-28); PCO2 ABG 37 mmHg (35-46); PH ABG 7.39 (7.35-7.45); PO2 ABG 134 mmHg (65-108); SAT O2 ABG 98 % (92-99)
[2017-04-22] MEDS ORDERED: ONDANSETRON PF 4 MG/2 ML VIAL. IV PRN (02:00)
--- NOTE | 2017-04-22 03:04 | ACF ---
Admission Forms Criteria RESPIRATORY FAILURE [facility] Clinical Indications for Admission to Inpatient Care (Place 'X' for any and all applicable criteria): Hospital admission is needed for appropriate care of the patient because of acute respiratory failure or insufficiency as indicated by ANY ONE of the following(1)(2)(3)(4)(5)(6)(7)(8): [X ]I. Mechanical ventilation needed (acute invasive or noninvasive) [ ]II. Severe ventilation deficit as indicated by ANY ONE of the following (9) [ ]a) Respiratory acidosis (pH less than 7.32 and partial pressure of carbon dioxide greater than 40 mm Hg (5.3 kPa)) [ ]b) Partial pressure of carbon dioxide greater than 44 mm Hg (5.9 kPa ) (new) [ ]c) Airflow measurements less than 25% of predicted (eg, peak expiratory flow rate less than 100 L/minute) [ ]d) Forced vital capacity less than 15 mL/kg of ideal body weight, or 50% decrease in vital capacity from baseline [ ]III. Noncardiac pulmonary edema not resolving with rapid emergency treatment (8) [ ]IV. Severe respiratory distress as indicated by ANY ONE of the following: [ ]a) Severe tachypnea (respiratory rate greater than 30, greater than 45 for 6-month-old, greater than 60 for ) [ ]b) Severe hypoxemia (partial pressure of oxygen less than 50 mm Hg ( 6.7 kPa) on greater than 50% oxygen or partial pressure of oxygen to FIO2 ratio less than 200) [ ]c) Mental status deterioration from respiratory disease [ ]V. Airway obstruction or inadequate protection [A](10)(11) The original [employer] content created by [employer] has been revised. The portions of the content which have been revised are identified through the use of italic text or in bold, and [employer] has neither reviewed nor approved the modified material. All other unmodified content is copyright [employer]. Please see references footnoted in the original [employer] edition 2016 Admission Criteria Met?: Yes DA MILIAN April 22, 2017 03:04
[2017-04-22] MEDS ORDERED: NORMAL SALINE IV PRN (03:16)
[2017-04-22] MEDS ORDERED: IV NORMAL SALINE 1000ML BAG 250 ML IV PRN (03:16)
[2017-04-22] MEDS ORDERED: 0.9 % SODIUM CHLORIDE 10 ML DISP.SYRIN. IV PRN ×2 (03:30)
[2017-04-22] MEDS ORDERED: DIALYSIS PATIENT. MC PRN (03:30)
[2017-04-22] MEDS ORDERED: ALBUMIN HUMAN 25% 200 ML IV PRN (03:30)
--- NOTE | 2017-04-22 07:39 | EKG ---
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
--- NOTE | 2017-04-22 08:14 | RAD ---
EXAM: Chest, single view. HISTORY: Dyspnea. COMPARISON: 04/13/2017. FINDINGS: A frontal view of the chest obtained. There has been interval increase in diffuse interstitial opacity likely due to congestion. The possibly of underlying chronic coarse interstitial changes is not excluded. There is no consolidation, effusion or pneumothorax. The heart is normal in size. There is a right internal jugular catheter with the tip in the superior vena cava. IMPRESSION: Interval increase in suspected pulmonary congestion. There may be underlying chronic coarse interstitial changes.
[2017-04-22 12:31] LABS: PCO2 COOX 31 mmHg (35-46); PH COOX 7.45 (7.35-7.45); PO2 COOX 99 mmHg (65-108)
[2017-04-22 12:32] LABS: BASE EXCESS COOX -3 mmol/L (-3-3); FIO2 COOX 28; HCO3 COOX 21 mmol/L (21-28); SAT O2 COOX 97 % (92-99)
[2017-04-22] MEDS ORDERED: amLODIPine BESYLATE 5 MG TABLET PO SCH (13:00)
[2017-04-22] MEDS ORDERED: NON FORMULARY ITEM (Ipratropium Bromide (Atrovent Hfa) 2 PUFF) IH SCH (13:00)
[2017-04-22] MEDS: IPRATROPIUM BROMIDE 0.5 MG/2.5 ML NEBU. NEB SCH ×3 (13:01→19:36)
[2017-04-22] MEDS: ALPRAZolam 0.5 MG TABLET PO SCH ×2 (14:00→20:27)
--- NOTE | 2017-04-22 14:01 | PDOC2 ---
CONSULT Date of Consult Date of Consult DATE: 04/22/17 TIME: 13:44 Past Medical History Cardiovascular: HTN Pulmonary: COPD Renal/: Chronic renal failure Endocrine: Diabetes Past Surgical History Past Surgical History: Other Family History Family History: Family History Unknown Social History ALCOHOL: none Drugs: None Lives: with Family Current Problem List Problem List Problems Medical Problems: (1) Acute respiratory failure Status: Acute (2) End-stage renal disease needing dialysis Status: Acute Current Medications Current Medications Current Medications Albuterol Sulfate (Ventolin Neb Soln) 10 mg 1X ONCE CONT NEB Last administered on 04/22/17 01:03; Start 04/22/17 at 01:15; Stop 04/22/17 at 01:16 ; Status DC Albuterol/ Ipratropium (Duoneb) 3 ml STK-MED ONCE .ROUTE ; Start 04/22/17 at 00: 49; Stop 04/22/17 at 00:50; Status DC Furosemide (Lasix) 100 mg 1X ONCE IVP Last administered on 04/22/17 01:36; Start 04/22/17 at 01:30; Stop 04/22/17 at 01:31; Status DC Ondansetron HCl (Zofran) 4 mg PRN Q8HRS PRN IV NAUSEA/VOMITING; Start 04/22/17 at 02:00; Stop 04/23/17 at 01:59 Sodium Chloride 250 ml @ 250 mls/hr Q1H PRN IV hypotension; Start 04/22/17 at 03:16; Stop 04/22/17 at 09:15; Status DC Albumin Human 200 ml @ 200 mls/hr 1X PRN PRN IV Hypotension; Start 04/22/17 at 03:30; Stop 04/22/17 at 09:29; Status DC Sodium Chloride (Normal Saline Flush) 10 ml 1X PRN PRN IV AP catheter pack; Start 04/22/17 at 03:30; Stop 04/23/17 at 03:29 Sodium Chloride (Normal Saline Flush) 10 ml 1X PRN PRN IV F[employer] catheter pack; Start 04/22/17 at 03:30; Stop 04/23/17 at 03:29 Sodium Chloride 200 ml @ 400 mls/hr Q30M PRN IV PATENCY; Start 04/22/17 at 03: 16; Stop 04/22/17 at 15:15 Info (PHARMACY MONITORING -- do not chart) 1 each PRN DAILY PRN MC SEE COMMENTS ; Start 04/22/17 at 03:30 Alprazolam (Xanax) 0.5 mg TID PO ; Start 04/22/17 at 14:00 Amlodipine Besylate (Norvasc) 5 mg DAILY PO ; Start 04/22/17 at 13:00 Dipyridamole/ Aspirin (Aggrenox) 1 cap BID PO ; Start 04/22/17 at 13:00 Folic Acid (Folic Acid) 1 mg DAILY PO ; Start 04/22/17 at 13:00 Insulin Aspart (NovoLOG) 14 units TIDWMEALS SQ ; Start 04/22/17 at 17:00 Metoprolol Tartrate (Lopressor) 25 mg BID PO ; Start 04/22/17 at 13:00 Sertraline HCl (Zoloft) 75 mg DAILY PO ; Start 04/22/17 at 13:00 Non-Formulary Medication 2 puff QID IH ; Start 04/22/17 at 13:00; Stop 04/22/17 at 13:00; Status DC Levothyroxine Sodium (Synthroid) 2,000 mcg DAILY07 PO ; Start 04/22/17 at 15:00 Nortriptyline HCl (Pamelor) 75 mg QHS PO ; Start 04/22/17 at 21:00 Insulin Detemir (Levemir) 43 units BID SQ ; Start 04/22/17 at 21:00 Ipratropium [place] (Atrovent) 0.5 mg RTQID NEB Last administered on 04/22/17t 13:01; Start 04/22/17 at 13:00 Active Scripts Active Amlodipine Besylate 5 Mg Tablet 5 Mg PO DAILY Metoprolol Tartrate 25 Mg Tablet 25 Mg PO BID Reported Novolin N (Nph, Human Insulin Isophane) 100 Unit/1 Ml Vial 43 Unit SQ BID Novolog Flexpen (Insulin Aspart) 100 Unit/1 Ml Insuln.pen 14 Unit SQ TIDWMEALS Atrovent Hfa (Ipratropium [place]) 12.9 Gm Hfa.aer.ad 2 Puff IH QID Levothyroxine Sodium 200 Mcg Tablet 1 Tab PO DAILY Aggrenox 25 Mg-200 Mg Capsule (Aspirin/Dipyridamole) 1 Each Cpmp.12hr 1 Cap PO BID Nortriptyline Hcl 75 Mg Capsule 75 Mg PO DAILY Vitamin B Complex 1 Each Capsule 1 Each PO Folic Acid 1 Mg Tablet 1 Tab PO DAILY Zoloft (Sertraline Hcl) 50 Mg Tablet 1.5 Tab PO DAILY Xanax (Alprazolam) 0.5 Mg Tablet 1 Tab PO TID Allergies Allergies: Coded Allergies: No Known Drug Allergies (Unverified , 02/17/17) ROS Review of System GEN: no Fevers no Chills EYES: no new Visual Complaints ENT: no EN Drainage no Hearing deficiets CVS: + Orthopnea no CP RESP: + SOB + BARCENAS GI: no Nausea no Vomiting : no Dysuria no Urgency HEME: no easy bruising no Palp Ly Nodes NEURO no Focal Weakness no Sz PSYCH: no Suicidal Ideation no Depression SKIN: no Rashes ENDO: no Polyuria or Polydipsia no Hot/Cold Intolerance MU SK: no Arthralgia no Myalgia Physical Exam Physical Exam General Appearance: Awake Alert Oriented x 3 In no Distress Eyes: VIsion Unchanged Conjunctiva Normal EN: No EN Drainage Mucous Memb. Neck: no JVD min JVP Supple no Thyromegaly CVS: S1 S2 sys Murmur No Gallop No Rub Tr Edema Resp: few basal Rales no Rhonchi no Acc. Muscle use GI: BS +ve NO Bruit Non Tender Non Distended : no CVA tenderness; no Suprapubic Tenderness SKIN: no Rashes Breast Exam deferred Mu.Sk: Adequate ROM no Muscle Atrophy Heme: Unable to palpate Obvious LAD no palp Splenomegaly NEURO: Good Strength and Tone Cranial Nerves II - XII grossly intact Psych: not Depressed no Active hallucination Vital Signs Vital Signs Date Time Temp Pulse Resp B/P (MAP) Pulse Ox O2 Delivery O2 Flow Rate FiO2 04/22/17 13:00 83 20 144/62 (89) 96 Nasal Cannula 1.0 04/22/17 12:00 98.3 98.3 Assessment & Plan ESRD.: Pt emergently dialyzed early this am and now doing nad feeling much better 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 HTN: Current BP meds reviewed. See orders for changes. Bone & Mineral: check Phos and follow levels as OP intake improves ABN CXR - ? Pulm fibrosis (previous CXR was "almost clear") Will request SW to reassess OP HD setup arrangements Discussed Plan of Care and prognosis etc. at length with pt Labs Labs Laboratory Tests Test 04/22/17 00:45 04/22/17 01:00 04/22/17 01:34 04/22/17 09:40 White Blood Count 11.3 x10^3/uL (4.0-11.0) Red Blood Count 3.09 x10^6/uL (4.30-5.70) Hemoglobin 8.9 g/dL (13.0-17.5) Hematocrit 26.9 % (39.0-53.0) Mean Corpuscular Volume 87 fL (79-100) Mean Corpuscular Hemoglobin 29 pg (25-35) Mean Corpuscular Hemoglobin Concent 33 g/dL (31-37) Red Cell Distribution Width 15.5 % (11.5-14.5) Platelet Count 227 x10^3/uL (140-400) Neutrophils (%) (Auto) 78 % (31-73) Lymphocytes (%) (Auto) 13 % (24-48) Monocytes (%) (Auto) 8 % (0-9) Eosinophils (%) (Auto) 1 % (0-3) Basophils (%) (Auto) 1 % (0-3) Neutrophils # (Auto) 8.8 x10^3uL (1.8-7.7) Lymphocytes # (Auto) 1.5 x10^3/uL (1.0-4.8) Monocytes # (Auto) 0.8 x10^3/uL (0.0-1.1) Eosinophils # (Auto) 0.1 x10^3/uL (0.0-0.7) Basophils # (Auto) 0.1 x10^3/uL (0.0-0.2) Sodium Level 139 mmol/L (136-145) Potassium Level 4.0 mmol/L (3.5-5.1) Chloride Level 101 mmol/L (98-107) Carbon Dioxide Level 25 mmol/L (21-32) Anion Gap 13 (6-14) 15 mmol/L (6-14) Blood Urea Nitrogen 59 mg/dL (8-26) Creatinine 5.1 mg/dL (0.7-1.3) Estimated GFR (Cockcroft-Gault) 11.3 BUN/Creatinine Ratio 12 (6-20) Glucose Level 186 mg/dL (70-99) 185 mg/dL (70-99) Calcium Level 8.5 mg/dL (8.5-10.1) Total Bilirubin 0.2 mg/dL (0.2-1.0) Aspartate Amino Transf (AST/SGOT) 20 U/L (15-37) Alanine Aminotransferase (ALT/SGPT) 22 U/L (16-63) Alkaline Phosphatase 96 U/L (46-116) Troponin I Quantitative < 0.017 ng/mL (0.000-0.055) Total Protein 6.5 g/dL (6.4-8.2) Albumin 3.2 g/dL (3.4-5.0) Albumin/Globulin Ratio 1.0 (1.0-1.7) Bedside Hemoglobin 9.5 g/dL (14-18) Bedside Hematocrit 28 % (37-52) Bedside Sodium 136 mmol/L (135-145) Bedside Potassium 3.9 mmol/L (3.5-5.0) Bedside Chloride 103 mmol/L (98-110) Bedside Total CO2 23 mmol/L (23-32) Bedside Blood Urea Nitrogen 55 mg/dL (8-26) Bedside Creatinine 5.0 mg/dL (0.5-1.4) Bedside Ionized Calcium (Alfonso) 1.15 mmol/L (1.13-1.32) O2 Saturation 98 % (92-99) Arterial Blood pH 7.39 (7.35-7.45) Arterial Blood pCO2 at Patient Temp 37 mmHg (35-46) Arterial Blood pO2 at Patient Temp 134 mmHg (65-108) Arterial Blood HCO3 22 mmol/L (21-28) Arterial Blood Base Excess -2 mmol/L (-3-3) FiO2 30 Glucose (Fingerstick) 212 mg/dL (70-99) Test 04/22/17 11:25 04/22/17 12:51 O2 Saturation 97 % (92-99) Arterial Blood pH 7.45 (7.35-7.45) Arterial Blood pCO2 at Patient Temp 31 mmHg (35-46) Arterial Blood pO2 at Patient Temp 99 mmHg (65-108) Arterial Blood HCO3 21 mmol/L (21-28) Arterial Blood Base Excess -3 mmol/L (-3-3) FiO2 28 Glucose (Fingerstick) 173 mg/dL (70-99) Laboratory Tests Test 04/22/17 00:45 04/22/17 01:00 04/22/17 01:34 04/22/17 09:40 White Blood Count 11.3 x10^3/uL (4.0-11.0) Red Blood Count 3.09 x10^6/uL (4.30-5.70) Hemoglobin 8.9 g/dL (13.0-17.5) Hematocrit 26.9 % (39.0-53.0) Mean Corpuscular Volume 87 fL (79-100) Mean Corpuscular Hemoglobin 29 pg (25-35) Mean Corpuscular Hemoglobin Concent 33 g/dL (31-37) Red Cell Distribution Width 15.5 % (11.5-14.5) Platelet Count 227 x10^3/uL (140-400) Neutrophils (%) (Auto) 78 % (31-73) Lymphocytes (%) (Auto) 13 % (24-48) Monocytes (%) (Auto) 8 % (0-9) Eosinophils (%) (Auto) 1 % (0-3) Basophils (%) (Auto) 1 % (0-3) Neutrophils # (Auto) 8.8 x10^3uL (1.8-7.7) Lymphocytes # (Auto) 1.5 x10^3/uL (1.0-4.8) Monocytes # (Auto) 0.8 x10^3/uL (0.0-1.1) Eosinophils # (Auto) 0.1 x10^3/uL (0.0-0.7) Basophils # (Auto) 0.1 x10^3/uL (0.0-0.2) Sodium Level 139 mmol/L (136-145) Potassium Level 4.0 mmol/L (3.5-5.1) Chloride Level 101 mmol/L (98-107) Carbon Dioxide Level 25 mmol/L (21-32) Anion Gap 13 (6-14) 15 mmol/L (6-14) Blood Urea Nitrogen 59 mg/dL (8-26) Creatinine 5.1 mg/dL (0.7-1.3) Estimated GFR (Cockcroft-Gault) 11.3 BUN/Creatinine Ratio 12 (6-20) Glucose Level 186 mg/dL (70-99) 185 mg/dL (70-99) Calcium Level 8.5 mg/dL (8.5-10.1) Total Bilirubin 0.2 mg/dL (0.2-1.0) Aspartate Amino Transf (AST/SGOT) 20 U/L (15-37) Alanine Aminotransferase (ALT/SGPT) 22 U/L (16-63) Alkaline Phosphatase 96 U/L (46-116) Troponin I Quantitative < 0.017 ng/mL (0.000-0.055) Total Protein 6.5 g/dL (6.4-8.2) Albumin 3.2 g/dL (3.4-5.0) Albumin/Globulin Ratio 1.0 (1.0-1.7) Bedside Hemoglobin 9.5 g/dL (14-18) Bedside Hematocrit 28 % (37-52) Bedside Sodium 136 mmol/L (135-145) Bedside Potassium 3.9 mmol/L (3.5-5.0) Bedside Chloride 103 mmol/L (98-110) Bedside Total CO2 23 mmol/L (23-32) Bedside Blood Urea Nitrogen 55 mg/dL (8-26) Bedside Creatinine 5.0 mg/dL (0.5-1.4) Bedside Ionized Calcium (Alfonso) 1.15 mmol/L (1.13-1.32) O2 Saturation 98 % (92-99) Arterial Blood pH 7.39 (7.35-7.45) Arterial Blood pCO2 at Patient Temp 37 mmHg (35-46) Arterial Blood pO2 at Patient Temp 134 mmHg (65-108) Arterial Blood HCO3 22 mmol/L (21-28) Arterial Blood Base Excess -2 mmol/L (-3-3) FiO2 30 Glucose (Fingerstick) 212 mg/dL (70-99) Test 04/22/17 11:25 04/22/17 12:51 O2 Saturation 97 % (92-99) Arterial Blood pH 7.45 (7.35-7.45) Arterial Blood pCO2 at Patient Temp 31 mmHg (35-46) Arterial Blood pO2 at Patient Temp 99 mmHg (65-108) Arterial Blood HCO3 21 mmol/L (21-28) Arterial Blood Base Excess -3 mmol/L (-3-3) FiO2 28 Glucose (Fingerstick) 173 mg/dL (70-99) MIKI SENA MD April 22, 2017 14:01
--- NOTE | 2017-04-22 14:08 | HP ---
ADMIT DATE: 04/22/2017 CHIEF COMPLAINT: Shortness of breath. HISTORY OF PRESENT ILLNESS: The patient is a pleasant 71-year-old male who was supposed to be on dialysis for the past week, but did not go. He states it was not arranged, so he left here, [facility] Basically he is volume overloaded. He has shortness of breath he is hypoxic. We have dialyzed him emergently last night, he is going to dialyze a couple more times here. PAST MEDICAL HISTORY: COPD, end-stage renal disease, stroke, diabetes, hyperlipidemia, hypertension, thyroid cancer, asthma, and thyroidectomy. PAST SURGICAL HISTORY: Back surgery and shoulder surgery. ALLERGIES: None. FAMILY HISTORY: Coronary artery disease. SOCIAL HISTORY: He quit smoking, no drinking or drugs. MEDICATIONS: Reviewed, please refer to the MRAD. REVIEW OF SYSTEMS: GENERAL: No history of weight change, weakness or fevers. SKIN: No bruising, hair changes or rashes. EYES: No blurred, double or loss of vision. NOSE AND THROAT: No history of nosebleeds, hoarseness or sore throat. HEART: No history of palpitations, chest pain or shortness of breath on exertion. LUNGS: The patient complains of shortness of breath. GASTROINTESTINAL: Denies changes in appetite, nausea, vomiting, diarrhea or constipation. GENITOURINARY: No history of frequency, urgency, hesitancy or nocturia. NEUROLOGIC: Denies history of numbness, tingling, tremor or weakness. PSYCHIATRIC: No history of panic, anxiety or depression. ENDOCRINE: No history of heat or cold intolerance, polyuria or polydipsia. EXTREMITIES: Denies muscle weakness, joint pain, pain on walking or stiffness. PHYSICAL EXAMINATION: VITAL SIGNS: Temperature afebrile, pulse 62, respirations 18, blood pressure 127/60. GENERAL: He is sleeping. He will not wake up too much, he does a little bit. He seems like he might be hypercapnic. He has an unusual respiratory pattern. I ordered a stat ABG. HEART: Distant S1, S2. LUNGS: Diminished. ABDOMEN: Soft, positive bowel sounds. EXTREMITIES: 1+ edema. SKIN: No rashes. ENDOCRINE: No thyromegaly. LYMPHATICS: No cervical nodes. HEMATOPOIETIC: No bruising. CHEST: He has got a right tunneled dialysis catheter near the subclavian region. Chest x-ray was reviewed by me showed vascular congestion. LABORATORY DATA: White count is 11, hemoglobin 9, platelets 227. Electrolytes normal other than BUN of 59, creatinine of 5. His anion gap is high at 15. His glucose is 212. Troponin is 0. Albumin 3.2. ASSESSMENT AND PLAN: Volume overload secondary to missed some dialysis. The patient has been admitted, we are doing emergent dialysis we are going to do another one today and tomorrow. Consult nephrology. Continue home medicines, ICU monitoring. PROGNOSIS: Guarded. TOYA DAY DO DR: AILIN/mathieu JOB#: [id number] / [id number]
[2017-04-22] MEDS: SERTRALINE 25 MG TABLET. PO SCH (14:49)
[2017-04-22] MEDS: FOLIC ACID 1 MG TABLET. PO SCH (14:50)
[2017-04-22] MEDS: METOPROLOL TART IMMED RELEASE 25 MG TABLET. PO SCH ×2 (14:50→20:27)
[2017-04-22] MEDS: ASPIRIN/DIPYRIDAMOLE 200/25MG CAP.ER.12H. PO SCH ×2 (14:50→20:27)
[2017-04-22] MEDS: LOSARTAN POTASSIUM 25 MG TABLET. PO SCH (14:52)
[2017-04-22] MEDS ORDERED: LEVOTHYROXINE 100 MCG TABLET PO SCH ×2 (15:00→15:24)
[2017-04-22] MEDS: INSULIN ASPART 300 UNITS/3 ML INSULN.PEN SQ SCH (17:25)
[2017-04-22] MEDS: INSULIN DETEMIR 300 UNITS/3 ML INSULN.PEN. SQ SCH (20:33)
[2017-04-22] MEDS ORDERED: DARBEPOETIN ALFA 60 MCG/0.3 ML DISP.SYRIN. SQ SCH (21:00)
[2017-04-22] MEDS ORDERED: NORTRIPTYLINE 25 MG CAPSULE PO SCH (21:00)
[2017-04-23] MEDS ORDERED: ALBUTEROL SULFATE 2.5 MG/3 ML NEBU. NEB ONE (00:30)
--- NOTE | 2017-04-23 01:13 | CONS ---
DATE OF CONSULTATION: 04/22/2017 PRIMARY PHYSICIAN: Dr. Hoffman and Dr. Lyles in the ER. HISTORY OF PRESENT ILLNESS: The patient is a 71-year-old gentleman from the [place]. He was recently initiated on dialysis. He claims that there was some misunderstanding at the time of discharge regarding his outpatient dialysis setup and he has not dialyzed for about 3 days. In this setting, he developed increasing shortness of breath and presented to the ER with fluid overload, shortness of breath, hypoxemia and I was called for the arrangement of emergent dialysis. This was accomplished earlier today. He tolerated and 3 kilos were taken off. He was also given IV Lasix through the ER as ordered by me and is feeling much more comfortable. He is somewhat drowsy though. Denies any others complaints per se. PAST MEDICAL HISTORY: Other than as documented is positive for coronary artery disease with minimal interventions and now ESRD, on dialysis. He is also noted to have thyroid problems with tonsillectomy, thyroidectomies for thyroid cancer, laminectomy in the past, history of CVA, peripheral neuropathy, CHF with EF 25-30%, sleep apnea, but is noncompliant with CPAP, underlying asthma, dialysis access surgery, depression, anxiety, previous tobacco abuse. MIKI SENA MD DR: JENNA/mathieu JOB#: [id number] / [id number]
[2017-04-23 03:28] VITALS: BP 137/62
[2017-04-23 06:26] VITALS: BP 134/62
[2017-04-23 07:00] VITALS: BP 148/72
--- NOTE | 2017-04-23 08:02 | PDOC ---
SUBJECTIVE ROS ESRD Doign and feeling well today. Does not want to do xtra HD today CVS: no Orthopnea, no CP RESP: ch SOB, ch BARCENAS GI: no Nausea, no Vomiting : no Dysuria, no Urgency OBJECTIVE Vital Signs Vital Signs Date Time Temp Pulse Resp B/P (MAP) Pulse Ox O2 Delivery O2 Flow Rate FiO2 04/23/17 07:00 98.0 69 20 148/72 (97) 91 Nasal Cannula 2.0 98.0 I & 0 Intake and Output 04/23/17 07:00 Intake Total 700 ml Output Total 900 ml Balance -200 ml Intake Oral 700 ml Output Urine Total 900 ml # Voids 2 PHYSICAL EXAM Physical Exam General Appearance: Awake Alert Oriented x 3 In no Distress Eyes: VIsion Unchanged Conjunctiva Normal EN: No EN Drainage Mucous Memb. Neck: no JVD min JVP Supple no Thyromegaly CVS: S1 S2 sys Murmur No Gallop No Rub Tr Edema Resp: Rare basal Rales no Rhonchi no Acc. Muscle use GI: BS +ve NO Bruit Non Tender Non Distended : no CVA tenderness; no Suprapubic Tenderness Assessment & Plan ESRD.: Pt was dialyzed yesterday and now feels that his breathing is back to basline and does not want an extra run of HD today. will go back to OP TTSat schedule - would like to go home CKD IV/V in the past due to underlying DM/ HTNSive / NS in single functioning kidney Fl OVerload - clinically pt feels like he is back to Baseline Anemia: Epogen as ordered; Transfuse with next HD as needed. HTN: Current BP meds reviewed. See orders for changes. Bone & Mineral: check Phos and follow levels as OP intake improves Will request SW to reassess OP HD setup arrangements Discussed Plan of Care and prognosis etc. at length with pt COMMENT/RELEVANT DATA Meds Current Medications Medications (Trade) Dose Ordered Sig/Tejas Start Time Stop Time Status Last Admin Dose Admin Albumin Human 200 ml @ 200 mls/hr 1X PRN PRN 04/22/17 03:30 04/22/17 09:29 DC Albuterol Sulfate (Ventolin Neb Soln) 2.5 mg 1X ONCE 04/23/17 00:30 04/23/17 00:32 DC 04/23/17 00:18 2.5 MG Albuterol/ Ipratropium (Duoneb) 3 ml STK-MED ONCE 04/22/17 00:49 04/22/17 00:50 DC Alprazolam (Xanax) 0.5 mg TID 04/22/17 14:00 04/22/17 20:27 0.5 MG Amlodipine Besylate (Norvasc) 5 mg DAILY 04/22/17 13:00 04/22/17 14:01 DC Darbepoetin Dagoberto (Aranesp) 60 mcg Sa 04/22/17 21:00 04/22/17 20:28 60 MCG Dipyridamole/ Aspirin (Aggrenox) 1 cap BID 04/22/17 13:00 04/22/17 20:27 1 CAP Folic Acid (Folic Acid) 1 mg DAILY 04/22/17 13:00 04/22/17 14:50 1 MG Furosemide (Lasix) 100 mg 1X ONCE 04/22/17 01:30 04/22/17 01:31 DC 04/22/17 01:36 100 MG Info (PHARMACY MONITORING -- do not chart) 1 each PRN DAILY PRN 04/22/17 03:30 Insulin Aspart (NovoLOG) 14 units TIDWMEALS 04/22/17 17:00 04/22/17 17:25 14 UNITS Insulin Detemir (Levemir) 43 units BID 04/22/17 21:00 04/22/17 20:33 43 UNITS Ipratropium [place] (Atrovent) 0.5 mg RTQID 04/22/17 13:00 04/22/17 19:36 0.5 MG Levothyroxine Sodium (Synthroid) 200 mcg DAILY07 04/22/17 15:24 04/23/17 06:24 200 MCG Losartan Potassium (Cozaar) 25 mg DAILY 04/22/17 14:00 04/22/17 14:52 25 MG Metoprolol Tartrate (Lopressor) 25 mg BID 04/22/17 13:00 04/22/17 20:27 25 MG Non-Formulary Medication 2 puff QID 04/22/17 13:00 04/22/17 13:00 DC Nortriptyline HCl (Pamelor) 75 mg QHS 04/22/17 21:00 04/22/17 20:27 75 MG Ondansetron HCl (Zofran) 4 mg PRN Q8HRS PRN 04/22/17 02:00 04/23/17 01:59 DC Sertraline HCl (Zoloft) 75 mg DAILY 04/22/17 13:00 04/22/17 14:49 75 MG Sodium Chloride 200 ml @ 400 mls/hr Q30M PRN 04/22/17 03:16 04/22/17 14:01 DC Sodium Chloride (Normal Saline Flush) 10 ml 1X PRN PRN 04/22/17 03:30 04/23/17 03:29 DC Lab Laboratory Tests Test 04/22/17 09:40 04/22/17 11:25 04/22/17 12:51 04/22/17 17:06 Glucose (Fingerstick) 212 mg/dL (70-99) 173 mg/dL (70-99) 228 mg/dL (70-99) O2 Saturation 97 % (92-99) Arterial Blood pH 7.45 (7.35-7.45) Arterial Blood pCO2 at Patient Temp 31 mmHg (35-46) Arterial Blood pO2 at Patient Temp 99 mmHg (65-108) Arterial Blood HCO3 21 mmol/L (21-28) Arterial Blood Base Excess -3 mmol/L (-3-3) FiO2 28 Test 04/22/17 20:25 04/23/17 06:58 Glucose (Fingerstick) 108 mg/dL (70-99) 131 mg/dL (70-99) MIKI SENA MD April 23, 2017 08:02
[2017-04-23] MEDS: IPRATROPIUM BROMIDE 0.5 MG/2.5 ML NEBU. NEB SCH ×2 (08:13→11:30)
[2017-04-23] MEDS ORDERED: FUROSEMIDE 100 MG/10 ML VIAL. IVP ONE (08:15)
[2017-04-23] MEDS: SERTRALINE 25 MG TABLET. PO SCH (08:22)
[2017-04-23] MEDS: METOPROLOL TART IMMED RELEASE 25 MG TABLET. PO SCH (08:23)
[2017-04-23] MEDS: FOLIC ACID 1 MG TABLET. PO SCH (08:23)
[2017-04-23] MEDS: LOSARTAN POTASSIUM 25 MG TABLET. PO SCH (08:24)
[2017-04-23] MEDS: ALPRAZolam 0.5 MG TABLET PO SCH (08:24)
[2017-04-23] MEDS: INSULIN ASPART 300 UNITS/3 ML INSULN.PEN SQ SCH ×2 (08:30→12:04)
[2017-04-23] MEDS: INSULIN DETEMIR 300 UNITS/3 ML INSULN.PEN. SQ SCH (08:34)
[2017-04-23] MEDS: ASPIRIN/DIPYRIDAMOLE 200/25MG CAP.ER.12H. PO SCH (10:11)
[2017-04-23 10:55] VITALS: BP 142/75
[2017-04-23] MEDS ORDERED: FURO40TA4 PO (11:31)
--- NOTE | 2017-04-23 13:22 | PDOC3 ---
Discharge Summary [facility] Date of Admission: April 22, 2017 Discharge Date: April 23, 2017 Admitting Diagnosis sob, acute resp failure, 2/2 pulmanory edema with ESRD missing HD, and CHF stable systolic CHF with EF 30% DM2 HTN HLD COPD SIRS wo infection anemia with ESRD, CHF Problems: Final Diagnosis CONSULTS renal Brief Hospital Course Mr. Juarez is a 71 old M, ESRD with new set up HD, EF 30%, was just DCed here on 04/15 . However, he could not get HD for one week since [facility]. He cannot tell me why it isnot set up, just said the lady from [place] told him not set up, and i cannot find out why he was dced if HD was not set up this week, and why LASXI was dced. pt feels ok now, renal consulted, no extra HD. [place] [facility] [place] [facility] [place], wants to go home. dc home with lasix 40mg daily, pt has decent urine output. dc time 40min. HEART: Distant S1, S2. LUNGS: : bl mild crackles ABDOMEN: Soft, positive bowel sounds. EXTREMITIES: no edema. SKIN: No rashes. ENDOCRINE: No thyromegaly. LYMPHATICS: No cervical nodes. HEMATOPOIETIC: No bruising. CHEST: He has got a right tunneled dialysis catheter near the subclavian region. Patient History: Patient reports no known family medical history. Problems: Disposition HOME CONDITION AT DISCHARGE: Improved, Stable Diet RENAL Scheduled Alprazolam (Xanax), 1 TAB PO TID, (Reported) Amlodipine Besylate (Amlodipine Besylate), 5 MG PO DAILY Aspirin/Dipyridamole (Aggrenox 25 Mg-200 Mg Capsule), 1 CAP PO BID, (Reported) Folic Acid (Folic Acid), 1 TAB PO DAILY, (Reported) Furosemide (Furosemide), 40 MG PO DAILY Insulin Aspart (Novolog Flexpen), 14 UNIT SQ TIDWMEALS, (Reported) Ipratropium [place] (Atrovent Hfa), 2 PUFF IH QID, (Reported) Levothyroxine Sodium (Levothyroxine Sodium), 1 TAB PO DAILY, (Reported) Metoprolol Tartrate (Metoprolol Tartrate), 25 MG PO BID Nortriptyline Hcl (Nortriptyline Hcl), 75 MG PO DAILY, (Reported) Nph, Human Insulin Isophane (Novolin N), 43 UNIT SQ BID, (Reported) Sertraline Hcl (Zoloft), 1.5 TAB PO DAILY, (Reported) Miscellaneous Medications Vitamin B Complex (Vitamin B Complex), 1 EACH PO, (Reported) Follow Up renal next week MANOLO ENGLISH MD April 23, 2017 13:22
[2017-04-24] MEDS ORDERED: FUROSEMIDE 40 MG TABLET. PO SCH (09:00)
== END 2017-04-23 15:50 | disposition home or self-care (01) | DRG 189 ==
LOC: ER 00:39 → 1 WEST ICU 01:30 → 6 SOUTH 15:50
PROVIDERS: ADMIT Internal Medicine; ATTEND Internal Medicine
PROC: 5A09357 Assistance with Respiratory Ventilation, Less than 24 Consecutive Hours, Continuous Positive Airway Pressure (ICD-10-PCS; principal; 2017-04-22)
PROC: 5A1D60Z (ICD-10-PCS; 2017-04-22)
DX: J96.01 Acute respiratory failure with hypoxia (principal); N18.6 End stage renal disease; I13.2 Hypertensive heart and chronic kidney disease with heart failure and with stage 5 chronic kidney disease, or end stage renal disease; R65.10 Systemic inflammatory response syndrome (SIRS) of non-infectious origin without acute organ dysfunction; I50.20 Unspecified systolic (congestive) heart failure; E87.70 Fluid overload, unspecified; D63.1 Anemia in chronic kidney disease; E11.22 Type 2 diabetes mellitus with diabetic chronic kidney disease; E78.5 Hyperlipidemia, unspecified; G47.30 Sleep apnea, unspecified; E11.42 Type 2 diabetes mellitus with diabetic polyneuropathy; I25.10 Atherosclerotic heart disease of native coronary artery without angina pectoris; F41.9 Anxiety disorder, unspecified; F32.9 Major depressive disorder, single episode, unspecified; J44.9 Chronic obstructive pulmonary disease, unspecified; Z82.49 Family history of ischemic heart disease and other diseases of the circulatory system; Z85.850 Personal history of malignant neoplasm of thyroid; Z86.73 Personal history of transient ischemic attack (TIA), and cerebral infarction without residual deficits; Z87.891 Personal history of nicotine dependence; Z91.19 Patient's noncompliance with other medical treatment and regimen; Z99.2 Dependence on renal dialysis; Z99.81 Dependence on supplemental oxygen
CPT/HCPCS: 36415; 36600; 71010; 80047; 80053; 82805; 82962; 84484; 85027; 87641; 93005; 94640; 94660; 94760; 96374; J0881; J1815; J7644; 99291-25

== ENCOUNTER 2017-05-11 13:17 | Emergency (ER) | payer MEDICARE ==
[~2017-05-11] VITALS: Ht 177.8 cm; Wt 101.2 kg
[~2017-05-11 13:17] MED LIST changes: -NPH,100V4 SQ; +NPH,100V5 SQ
[2017-05-11 13:50] LABS: BASO # 0.1 x10^3/uL (0.0-0.2); BASO % 1 % (0-3); EOS % 2 % (0-3); HEMATOCRIT 30.8 % (39.0-53.0); LYMPH # 1.2 x10^3/uL (1.0-4.8); LYMPH % 18 % (24-48); MEAN CORPUSCULAR HEMOGLOBIN 29 pg (25-35); MEAN CORPUSCULAR HGB CONC 33 g/dL (31-37); MEAN CORPUSCULAR VOLUME 90 fL (79-100); MONO % 10 % (0-9); NEUT % 69 % (31-73); PLATELET COUNT 236 x10^3/uL (140-400); RED BLOOD COUNT 3.44 x10^6/uL (4.30-5.70); RED CELL DISTRIBUTION WIDTH 18.3 % (11.5-14.5); WHITE BLOOD COUNT 6.8 x10^3/uL (4.0-11.0)
[2017-05-11 14:05] LABS: CALCIUM 8.2 mg/dL (8.5-10.1); CREATININE 3.2 mg/dL (0.7-1.3); GFR 19.3; POTASSIUM 3.7 mmol/L (3.5-5.1)
[2017-05-11 14:10] LABS: ALBUMIN 3.4 g/dL (3.4-5.0); ALBUMIN/GLOBULIN RATIO 0.9 (1.0-1.7); TOTAL BILIRUBIN 0.3 mg/dL (0.2-1.0)
[2017-05-11 15:00] VITALS: BP 147/85
--- NOTE | 2017-05-11 15:22 | ED.ADGEN ---
Past Medical History Past Medical History: Asthma, Cancer, COPD, CVA, Diabetes-Type II, Hypertension , Other Additional Past Medical Histor: THYROID CA Past Surgical History: Other Additional Past Surgical Histo: THYROIDECTOMY,TUMOR REMOVED FROM BACK,SHOULDER Alcohol Use: None Drug Use: None Adult General Chief Complaint Chief Complaint: ALTERED MENTAL STATUS HPI HPI Patient is a 71 year old L with end-stage renal disease requiring dialysis who presents with altered mental status while at dialysis. Patient admittedly took 2mg of Xanax just prior to dialysis so he could sleep during dialysis. While at dialysis, the patient appeared to be confused and was talking about his whom he no longer live. He was able to complete one hour of dialysis prior to being transferred to the ED. Patient is a and O 4 upon ED arrival. He denies any other symptoms or complaints. Review of Systems Review of Systems ROS as per HPI. Allergies Allergies Allergies Coded Allergies Type Severity Reaction Last Updated Verified No Known Drug Allergies 02/17/17 No Physical Exam Physical Exam Constitutional: Well developed, well nourished, no acute distress, non-toxic appearance. HENT: Normocephalic, atraumatic, bilateral external ears normal, oropharynx moist, no oral exudates, nose normal. Eyes: PERRLA, EOMI, conjunctiva normal. Neck: Normal range of motion, no tenderness. Cardiovascular:Heart rate regular rhythm, no murmur. Lungs & Thorax: Bilateral breath sounds clear to auscultation. Dialysis catheter and right anterior chest wall. Abdomen: Bowel sounds normal, soft, no tenderness. Skin: Warm, dry. Back: No tenderness. Extremities: No tenderness. Neurologic: Alert and oriented X 3, CN 2-12m intact, normal motor function, normal sensory function, no focal deficits noted. Psychologic: Affect normal, judgement normal, mood normal. Current Patient Data Vital Signs Vital Signs Date Time Temp Pulse Resp B/P (MAP) Pulse Ox O2 Delivery O2 Flow Rate FiO2 05/11/17 13:20 98.0 80 16 148/69 (95) 92 Room Air 98.0 Lab Values Laboratory Tests Test 05/11/17 13:30 White Blood Count 6.8 x10^3/uL (4.0-11.0) Red Blood Count 3.44 x10^6/uL (4.30-5.70) L Hemoglobin 10.0 g/dL (13.0-17.5) L Hematocrit 30.8 % (39.0-53.0) L Mean Corpuscular Volume 90 fL (79-100) Mean Corpuscular Hemoglobin 29 pg (25-35) Mean Corpuscular Hemoglobin Concent 33 g/dL (31-37) Red Cell Distribution Width 18.3 % (11.5-14.5) H Platelet Count 236 x10^3/uL (140-400) Neutrophils (%) (Auto) 69 % (31-73) Lymphocytes (%) (Auto) 18 % (24-48) L Monocytes (%) (Auto) 10 % (0-9) H Eosinophils (%) (Auto) 2 % (0-3) Basophils (%) (Auto) 1 % (0-3) Neutrophils # (Auto) 4.7 x10^3uL (1.8-7.7) Lymphocytes # (Auto) 1.2 x10^3/uL (1.0-4.8) Monocytes # (Auto) 0.7 x10^3/uL (0.0-1.1) Eosinophils # (Auto) 0.2 x10^3/uL (0.0-0.7) Basophils # (Auto) 0.1 x10^3/uL (0.0-0.2) Sodium Level 137 mmol/L (136-145) Potassium Level 3.7 mmol/L (3.5-5.1) Chloride Level 100 mmol/L (98-107) Carbon Dioxide Level 27 mmol/L (21-32) Anion Gap 10 (6-14) Blood Urea Nitrogen 23 mg/dL (8-26) Creatinine 3.2 mg/dL (0.7-1.3) H Estimated GFR (Cockcroft-Gault) 19.3 BUN/Creatinine Ratio 7 (6-20) Glucose Level 160 mg/dL (70-99) H Calcium Level 8.2 mg/dL (8.5-10.1) L Total Bilirubin 0.3 mg/dL (0.2-1.0) Aspartate Amino Transferase (AST) 20 U/L (15-37) Alanine Aminotransferase (ALT) 18 U/L (16-63) Alkaline Phosphatase 90 U/L (46-116) Total Protein 7.0 g/dL (6.4-8.2) Albumin 3.4 g/dL (3.4-5.0) Albumin/Globulin Ratio 0.9 (1.0-1.7) L Laboratory Tests 05/11/17 13:30 Laboratory Tests 05/11/17 13:30 EKG EKG [] Radiology/Procedures Radiology/Procedures [] Course & Med Decision Making Course & Med Decision Making Pertinent Labs and Imaging studies reviewed. (See chart for details) [She was benign exam. Effects of Xanax is likely resolved or dialyze prior to ED arrival. Patient instructed not to take Xanax prior to dialysis sessions. Follow-up with PCP as needed and dialysis as scheduled.] Dragon Disclaimer Dragon Disclaimer This electronic medical record was generated, in whole or in part, using a voice recognition dictation system. LINDA ZAMAN DO May 11, 2017 15:22
== END 2017-05-11 15:26 | disposition home or self-care (01) ==
LOC: ER 13:17
DX: R41.82 Altered mental status, unspecified (principal); R41.0 Disorientation, unspecified; J44.9 Chronic obstructive pulmonary disease, unspecified; E89.0 Postprocedural hypothyroidism; E11.22 Type 2 diabetes mellitus with diabetic chronic kidney disease; I12.0 Hypertensive chronic kidney disease with stage 5 chronic kidney disease or end stage renal disease; N18.6 End stage renal disease; Z99.2 Dependence on renal dialysis; Z86.73 Personal history of transient ischemic attack (TIA), and cerebral infarction without residual deficits
CPT/HCPCS: 36415; 80053; 85027; 99284

== ENCOUNTER 2017-07-15 17:37 | Emergency (ER) | payer MEDICARE, OTHER ==
[~2017-07-15] VITALS: Ht 182.9 cm; Wt 98.9 kg
--- NOTE | 2017-07-15 18:10 | EKG ---
[facility] [address] [place] [address] Test Date: 2017-07-15 Test Time: 17:44:01 Pat Name: FARHAN SAM Department: Room: Gender: M Cardiac Technologist: : 1945 Requested By: MAO YATES Order Number: [id number] Reading MD: Florence Ayala Measurements Intervals [place] Rate: 91 P: 25 IN: 182 QRS: -10 QRSD: 112 T: 35 QT: 416 QTc: 514 Interpretive Statements SINUS RHYTHM LEFTWARD AXIS LOW LIMB LEAD VOLTAGE PROLONGED QT Electronically Signed On 07-16-2017 20:09:44 CDT by Florence Ayala
[2017-07-15 18:27] LABS: BASO # 0.1 x10^3/uL (0.0-0.2); BASO % 1 % (0-3); EOS % 1 % (0-3); HEMATOCRIT 35.1 % (39.0-53.0); HEMOGLOBIN 11.3 g/dL (13.0-17.5); LYMPH # 1.1 x10^3/uL (1.0-4.8); LYMPH % 12 % (24-48); MEAN CORPUSCULAR HEMOGLOBIN 29 pg (25-35); MEAN CORPUSCULAR HGB CONC 32 g/dL (31-37); MEAN CORPUSCULAR VOLUME 90 fL (79-100); MONO % 8 % (0-9); NEUT % 79 % (31-73); PLATELET COUNT 261 x10^3/uL (140-400); RED CELL DISTRIBUTION WIDTH 19.4 % (11.5-14.5); WHITE BLOOD COUNT 9.2 x10^3/uL (4.0-11.0)
[2017-07-15] MEDS ORDERED: NITROGLYCERIN OINT 1 GM PACKET. TP ONE (18:30)
[2017-07-15] MEDS ORDERED: ASPIRIN ENTERIC COATED 325 MG TABLET.DR. PO ONE (18:30)
--- NOTE | 2017-07-15 18:38 | PHYS DOC ---
Past Medical History Past Medical History: Asthma, Cancer, COPD, CVA, Diabetes-Type II, Hypertension , Other Additional Past Medical Histor: THYROID CA Past Surgical History: Other Additional Past Surgical Histo: THYROIDECTOMY,TUMOR REMOVED FROM BACK,SHOULDER Alcohol Use: None Drug Use: None Adult General Chief Complaint Chief Complaint: CHEST PAIN HPI HPI Patient is a 71 year old male presenting to the emergency department for evaluation of chest tightness shortness of breath and he seems somewhat confused to me. Patient does not know who his physician is including where he dialyzes or what day he dialyzes. He told me when they Monday however it was confirmed that he is Monday. Looking through the records it appears that [facility] but comes here rather frequently for his issues. Review of Systems Review of Systems Constitutional: Denies fever or chills [] Eyes: Denies change in visual acuity, redness, or eye pain [] HENT: Denies nasal congestion or sore throat [] Respiratory: Denies cough. + shortness of breath [] Cardiovascular: + CP GI: Denies abdominal pain, nausea, vomiting, bloody stools or diarrhea [] : Denies dysuria or hematuria [] Musculoskeletal: Denies back pain or joint pain [] Integument: Denies rash or skin lesions [] Neurologic: Denies headache, focal weakness or sensory changes [] Current Medications Current Medications Current Medications Medications (Trade) Dose Ordered Sig/Tejas Start Time Stop Time Status Last Admin Dose Admin Albuterol/ Ipratropium (Duoneb) 3 ml 1X ONCE 07/15/17 18:45 07/15/17 18:46 DC 07/15/17 19:12 3 ML Aspirin (Ecotrin) 325 mg 1X ONCE 07/15/17 18:30 07/15/17 18:31 DC 07/15/17 18:27 325 MG Nitroglycerin (Nitro-Bid Oint) 1 inch 1X ONCE 07/15/17 18:30 07/15/17 18:31 DC 07/15/17 18:27 1 INCH Allergies Allergies Allergies Coded Allergies Type Severity Reaction Last Updated Verified No Known Drug Allergies 02/17/17 No Physical Exam Physical Exam Constitutional: Chronically ill appearing male with dialysis catheter in right chest HENT: Normocephalic, atraumatic, bilateral external ears normal, oropharynx moist, no oral exudates, nose normal. [] Eyes: PERRLA, EOMI, conjunctiva normal, no discharge. [] Neck: Normal range of motion, no tenderness, supple, no stridor. [] Cardiovascular:Heart rate regular rhythm, no murmur [] Lungs & Thorax: Diminished breath sounds bilaterally with crackles at bases. Mild to moderate air hunger Abdomen: Bowel sounds normal, soft, no tenderness, no masses, no pulsatile masses. [] Skin: Warm, dry, no erythema, no rash. [] Back: No tenderness, no CVA tenderness. [] Extremities: No tenderness, no cyanosis, no clubbing, ROM intact, 2-3+ edema BL. [] Neurologic: Alert and oriented X 2, moves all extremities but he does appear confused Current Patient Data Vital Signs Vital Signs Date Time Temp Pulse Resp B/P (MAP) Pulse Ox O2 Delivery O2 Flow Rate FiO2 07/15/17 18:27 86 171/87 07/15/17 18:15 28 96 Nasal Cannula 3.0 07/15/17 17:45 97.6 97.6 Lab Values Laboratory Tests Test 07/15/17 18:15 White Blood Count 9.2 x10^3/uL (4.0-11.0) Red Blood Count 3.90 x10^6/uL (4.30-5.70) L Hemoglobin 11.3 g/dL (13.0-17.5) L Hematocrit 35.1 % (39.0-53.0) L Mean Corpuscular Volume 90 fL (79-100) Mean Corpuscular Hemoglobin 29 pg (25-35) Mean Corpuscular Hemoglobin Concent 32 g/dL (31-37) Red Cell Distribution Width 19.4 % (11.5-14.5) H Platelet Count 261 x10^3/uL (140-400) Neutrophils (%) (Auto) 79 % (31-73) H Lymphocytes (%) (Auto) 12 % (24-48) L Monocytes (%) (Auto) 8 % (0-9) Eosinophils (%) (Auto) 1 % (0-3) Basophils (%) (Auto) 1 % (0-3) Neutrophils # (Auto) 7.3 x10^3uL (1.8-7.7) Lymphocytes # (Auto) 1.1 x10^3/uL (1.0-4.8) Monocytes # (Auto) 0.7 x10^3/uL (0.0-1.1) Eosinophils # (Auto) 0.1 x10^3/uL (0.0-0.7) Basophils # (Auto) 0.1 x10^3/uL (0.0-0.2) Prothrombin Time 15.8 SEC (11.7-14.0) H Prothrombin Time INR 1.3 (0.8-1.1) H PTT 35 SEC (24-38) Sodium Level 138 mmol/L (136-145) Potassium Level 3.4 mmol/L (3.5-5.1) L Chloride Level 100 mmol/L (98-107) Carbon Dioxide Level 24 mmol/L (21-32) Anion Gap 14 (6-14) Blood Urea Nitrogen 18 mg/dL (8-26) Creatinine 2.6 mg/dL (0.7-1.3) H Estimated GFR (Cockcroft-Gault) 24.5 BUN/Creatinine Ratio 7 (6-20) Glucose Level 142 mg/dL (70-99) H Calcium Level 8.8 mg/dL (8.5-10.1) Magnesium Level 1.9 mg/dL (1.8-2.4) Total Bilirubin 1.0 mg/dL (0.2-1.0) Aspartate Amino Transferase (AST) 141 U/L (15-37) H Alanine Aminotransferase (ALT) 162 U/L (16-63) H Alkaline Phosphatase 91 U/L (46-116) Troponin I Quantitative < 0.017 ng/mL (0.000-0.055) GN-Eof-L-Type Natriuretic Peptide > 33344 pg/mL (0-124) H Total Protein 7.1 g/dL (6.4-8.2) Albumin 3.4 g/dL (3.4-5.0) Albumin/Globulin Ratio 0.9 (1.0-1.7) L Lipase 55 U/L (73-393) L Laboratory Tests 07/15/17 18:15 Laboratory Tests 07/15/17 18:15 EKG EKG Sinus rhythm at 91 bpm with normal axis no obvious ST elevation or depression and normal T waves Radiology/Procedures Radiology/Procedures Cardiomegaly with normal mediastinum diffuse, very vascular congestion with no obvious free air pneumothorax or opacity Course & Med Decision Making Course & Med Decision Making Patient is somewhat hypertensive and possibly volume overloaded. We will plan for admit for further evaluation and treatment. Patient is somewhat ill, interesting enough patient is on hospice for his end- stage COPD and he never told me this. His hospice nurse ended up showing up and is unsure why an ambulance was called from the dialysis center as they are aware he is on hospice as well. She wanted him to go home. After the hospice nurse arrived I had discussion with patient and hospice nurse and they state that he very much wants to go home and is refusing admission. They verbalize understanding that he would likely from his COPD and/or fluid overload status as he appears to be struggling to breathe. Hospice nurse asked me to give him a dose of morphine through the IV to see how he responds and leave the IV in place with her she could give him morphine at home to help with his air hunger. I think this is a good plan as patient is able to make his own medical decisions and has planned ahead for this. Patient discharged with hospice nurse care and I told him he can return with any further concerns. I spoke to patient again and he is still agreeable to going home and understands that he may . Home health nurse will meet him at his place. EMS took patient home per his wishes. Dragon Disclaimer Juliaon Disclaimer This electronic medical record was generated, in whole or in part, using a voice recognition dictation system. Departure Departure Impression: Primary Impression: Acute respiratory failure Additional Impressions: ESRD (end stage renal disease) Pulmonary edema COPD exacerbation Disposition: 01 HOME, SELF-CARE Condition: GUARDED Referrals: NO PCP (PCP) Patient Instructions: Chronic Obstructive Pulmonary Disease Exacerbation Problem Qualifiers Primary Impression: Acute respiratory failure Respiratory failure complication: unspecified whether with hypoxia or hypercapnia Qualified Codes: J96.00 - Acute respiratory failure, unspecified whether with hypoxia or hypercapnia MAO YATES DO Jul 15, 2017 18:38
[2017-07-15 18:40] LABS: CALCIUM 8.8 mg/dL (8.5-10.1); CREATININE 2.6 mg/dL (0.7-1.3); GFR 24.5; POTASSIUM 3.4 mmol/L (3.5-5.1)
[2017-07-15] MEDS ORDERED: IPRATRPIUM/ALBUTEROL 0.5/2.5MG 3 ML NEBU. NEB ONE (18:45)
[2017-07-15 18:46] LABS: ALBUMIN 3.4 g/dL (3.4-5.0); ALBUMIN/GLOBULIN RATIO 0.9 (1.0-1.7); MAGNESIUM 1.9 mg/dL (1.8-2.4); TOTAL PROTEIN 7.1 g/dL (6.4-8.2)
[2017-07-15 18:47] LABS: INR 1.3 (0.8-1.1); PROTHROMBIN TIME PATIENT 15.8 SEC (11.7-14.0)
[2017-07-15] MEDS ORDERED: ONDANSETRON PF 4 MG/2 ML VIAL. IV PRN (19:00)
[2017-07-15] MEDS ORDERED: MORPHINE SULFATE 10 MG/ML VIAL. IV ONE (19:45)
[2017-07-15 21:07] VITALS: BP 155/77
--- NOTE | 2017-07-16 08:22 | RAD ---
Indication: Chest pain and short of air for 2 days. Renal failure. Dialysis catheter placed 2 weeks ago. Technique: Upright portable chest radiograph was obtained and compared to a study from April 22, 2017. Findings: Heart is upper limits of normal in size. Pulmonary vasculature appears cephalized and interstitial lung markings are increased. Minimal right pleural effusion may also be present. No focal airspace disease is identified. Patient's chin obscures much of the right upper lung field and a portion of the left upper lung field medially. Impression: Findings most suggestive of CHF. This may be superimposed on a background of chronic interstitial prominence.
== END 2017-07-15 21:08 | disposition home or self-care (01) ==
LOC: ER 17:37 → UNDOADMIN 18:47 → 2 NORTH 18:47
DX: J96.00 Acute respiratory failure, unspecified whether with hypoxia or hypercapnia (principal); I12.0 Hypertensive chronic kidney disease with stage 5 chronic kidney disease or end stage renal disease; N18.6 End stage renal disease; J44.1 Chronic obstructive pulmonary disease with (acute) exacerbation; J81.1 Chronic pulmonary edema; E11.9 Type 2 diabetes mellitus without complications; Z85.850 Personal history of malignant neoplasm of thyroid
CPT/HCPCS: 36415; 71010; 80053; 83690; 83735; 83880; 84484; 85025; 85610; 85730; 93005; 94640; 96374; 99285; J2270; J7620